=== PATIENT | male | born 2000 | race Hispanic/Latino ===

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

== ENCOUNTER 2024-07-20 14:35 | Inpatient (IN) | payer OTHER, BC ==
[~2024-07-20] VITALS: Ht 177.8 cm; Wt 95.0 kg
--- NOTE | 2024-07-20 15:13 | ERN ---
ED Note History of Present Illness Stated Complaint: SENT BY Chief Complaint: Shortness of Breath Time Seen by MD: 14:39 Dictation: 23-year-old male presents to the ED for evaluation of shortness a breath onset three days ago. Patient reports cough and nasal congestion, but denies any other associated symptoms at this time. Patient was sent by [facility] for low O2 sats and was diagnosed with pneumonia. Allergies: Coded Allergies: No Known Drug Allergies (Unverified Allergy, Unknown, 07/20/24) Past Medical History Past Medical History: No Pertinent History Surgical History: None Review of System Dictation Constitutional: Negative for fever,chills, and weight loss Eyes: Negative for injury, pain,redness, and discharge ENT: Positive for nasal congestion Negative for injury,pain or swelling Cardiovascular: Negative for chest pain, palpitations, and edema Respiratory: Positive for shortness of breath and cough Abdomen/GI: Negative for abdominal pain, nausea, vomiting, diarrhea, and constipation Back: Negative for injury and pain : Negative for injury, bleeding and discharge MS/Extremity: Negative for injury and deformity Skin: Negative for rash, and discoloration Neuro: Negative for headache, weakness, numbness, tingling, and seizure Psych: Negative for suicide ideation, homicidal ideation, and hallucinations Initial Vital Sign VS Vital Signs Date Time Temp Pulse Resp B/P (MAP) Pulse Ox O2 Delivery O2 Flow Rate FiO2 07/20/24 14:38 102.2 114 20 154/79 91 Room Air 0 07/20/24 15:05 21 Physical Exam Dictation General: awake, alert, ill-appearing, febrile Head/Face: Normocephalic, atraumatic Eyes: PERRL, EOMI, vision at baseline ENT: oral cavity clear, TMs clear, nasal congestion Neck: Trachea midline, supple, no nuchal rigidity Cardiovascular: Tachycardic, No MRGs, no JVD Respiratory: CTAB, no respiratory distress, No rales or wheezes Abdomen: Soft, non-tender, non-distended, normal bowel sounds, no guarding or rebound. Skin: Warm, dry, normal turgor, no rash MS/Extremity: Pulses equal, no cyanosis, neurovascular intact, FROM Neuro: COAx4, GCS 15, strength 5/5, CN 2-12 intact, normal cerebellar exam, normal gait, Psych: Normal behavior, mood, and affect normal Results (Laboratory/Radiology) Laboratory/Radiology Laboratory Tests Test 07/20/24 14:51 07/20/24 15:23 Influenza Type A Antigen Negative For Type A Influenza Type B Antigen Negative For Type B SARS-CoV-2 Antigen (Rapid) PRESUMPTIVE NEGATIVE Group A Streptococcus Rapid negative (NEGATIVE) White Blood Count 11.2 K/uL (4.8-10.8) H Red Blood Count 5.04 MIL/uL (4.50-6.20) Hemoglobin 14.7 g/dL (14.0-18.0) Hematocrit 44.3 % (42-54) Mean Corpuscular Volume 87.9 fL (79-99) Mean Corpuscular Hemoglobin 29.2 pg (27.0-33.0) Mean Corpuscular Hemoglobin Concent 33.2 g/dL (32.0-36.0) Red Cell Distribution Width 12.8 % (11.0-15.5) Platelet Count 374 K/uL (130-400) Mean Platelet Volume 9.8 fL (7.5-10.5) Immature Granulocyte % (Auto) 0.8 % (0-1) Neutrophils (%) (Auto) 83.5 % (40.0-77.0) H Lymphocytes (%) (Auto) 7.9 % (21.0-51.0) L Monocytes (%) (Auto) 6.9 % (3.0-13.0) Eosinophils (%) (Auto) 0.4 % (0.0-8.0) Basophils (%) (Auto) 0.5 % (0.0-5.0) Neutrophils # (Auto) 9.4 K/uL (1.8-7.7) H Lymphocytes # (Auto) 0.9 K/uL (1.0-4.8) L Monocytes # (Auto) 0.8 K/uL (0.1-1.0) Eosinophils # (Auto) 0.05 K/uL (0.00-0.70) Basophils # (Auto) 0.06 K/uL (0.00-0.20) Absolute Immature Granulocyte (auto 0.09 K/uL (0-1) Nucleated Red Blood Cells 0.0 % (0.0-0.19) White Cell Morphology Comment See comments Sodium Level 136 mmol/L (136-145) Potassium Level 3.8 mmol/L (3.5-5.1) Chloride Level 96 mmol/L (101-111) L Carbon Dioxide Level 31 mmol/L (21-32) Blood Urea Nitrogen 13 mg/dL (7-18) Creatinine 1.3 mg/dL (0.5-1.3) Glomerular Filtration Rate Calc 80 mL/min (>90) Random Glucose 147 mg/dL (70-105) H Lactic Acid Level 2.2 mmol/L (0.8-2.5) Total Calcium 9.4 mg/dL (8.5-10.1) Total Bilirubin 0.5 mg/dL (0.2-1.0) Direct Bilirubin 0.1 mg/dL (0.0-0.3) Aspartate Amino Transf (AST/SGOT) 28 U/L (10-37) Alanine Aminotransferase (ALT/SGPT) 55 U/L (12-78) Alkaline Phosphatase 65 U/L (50-136) Total Creatine Kinase 254 U/L (21-232) H Troponin I High Sensitivity 4 ng/L (4-75) B-Type Natriuretic Peptide 8 pg/mL (0-100) Total Protein 8.0 g/dL (6.0-8.3) Albumin 3.4 g/dL (3.5-5.0) L Labs Reviewed?: Yes X-RAY Comment: REASON: sob ORDERING PHYSICIAN: DEMARIO ZAMUDIO MD PROCEDURE: CXR1VW - CHEST 1VW CHEST 1VW REASON: sob COMPARISON: None. FINDINGS: There is haziness in the left lung base, probably from a left pleural effusion. The left basilar infiltrate consistent appearance. Lungs are otherwise clear. Cardiomediastinal and bony thorax appear unremarkable. IMPRESSION: 1. Infiltrate or effusion in the left lung base. DICTATED BY: JUAN CARLOS GANNON MD DATE: 07/20/24 1538 ED Course ED Course Orders Procedure Category Date Status Time Covid19 (Sars Antigen LAB 07/20/24 Complete Rapid) 14:39 Influenza Type A & B, LAB 07/20/24 Complete Rapid 14:39 Rapid (Group A Strep) LAB 07/20/24 Complete 14:39 Cbc With Differential LAB 07/20/24 Complete 15:12 Hepatic Function Panel LAB 07/20/24 Complete 15:12 Creatine Kinase, Total LAB 07/20/24 Complete 15:12 Basic Metabolic Panel LAB 07/20/24 Complete 15:12 Blood Cult VIRAL 07/20/24 Logged 15:12 B-Type Natriuretic LAB 07/20/24 Complete Peptide 15:12 Lactic Acid LAB 07/20/24 Complete 15:12 Troponin I High LAB 07/20/24 Complete Sensitivity 15:12 Chest 1vw RAD 07/20/24 Resulted 15:12 Urinalysis Profile LAB 07/20/24 Logged 15:12 Ipratropium/Albuterol PHA 07/20/24 Complete Neb (Duoneb) 15:30 Ceftriaxone 2gm Vial PHA 07/20/24 Complete (Rocephin 2gm Inj) 15:30 0.9%Nacl 1000ml (Ns PHA 07/20/24 Complete 1000ml) 15:30 Acetaminophen 500mg PHA 07/20/24 Complete Tab (Tylenol 500mg T 15:30 Current Medications Medications (Trade) Dose Ordered Sig/Carol Route PRN Reason Start Time Stop Time Status Last Admin Dose Admin Acetaminophen (TYLenol 500MG TAB) 1,000 mg ONCE ONCE PO 07/20/24 15:30 07/20/24 15:31 DC 07/20/24 15:35 Albuterol (DUOneb) 1 udvial ONCE ONCE IH 07/20/24 15:30 07/20/24 15:31 DC 07/20/24 15:34 Ceftriaxone Sodium (Rocephin 2gm Inj) 2 gm ONCE ONCE IVPB 07/20/24 15:30 07/20/24 15:31 DC 07/20/24 15:34 Sodium Chloride 1,000 ml @ 0 mls/hr ONCE ONCE IV 07/20/24 15:30 07/20/24 15:31 DC 07/20/24 15:34 Vital Signs Date Time Temp Pulse Resp B/P (MAP) Pulse Ox O2 Delivery O2 Flow Rate FiO2 07/20/24 15:34 111 24 07/20/24 15:05 102.2 110 18 131/78 90 Room Air* 0 21 07/20/24 14:38 102.2 114 20 154/79 91 Room Air 0 Medical Decision Making MDM MDM: Differential diagnosis: Pneumonia, pleural effusion, viral syndrome 1725- [facility] consult, accepts patient for admission Rationale: Tests considered and ordered secondary to shared decision making include: labs and radiology Risk of complication and/or morbidity or mortality of patient management: None Medications-Per medication reconciliation Need for hospitalization: Patient does meet criteria for hospitalization. Need for emergency major/minor surgery: No There are no social concerns with this patient. I independently interpreted the test that were performed, results were reviewed by me and considered findings on radiology if ordered. Medical management and examination interpretation discussions were had by me with other qualified healthcare professionals as indicated for the patient's care. Critical Care Note Critical Time: other (Total critical care time was 33 minutes. Excluding time for procedures. Management of critically ill patient with concern for acute decompensation. Management included interpretation of laboratory values and imaging, hemodynamics, time for consultation with consultants and admitting physician.) DX & DISP Disposition: Inpatient Decision to Admit Date: Jul 20, 2024 Decision to Admit Time: 17:25 Departure Impression: Primary Impression: Pleural effusion, left Additional Impressions: Community acquired pneumonia, Hypoxemia Condition: Stable Referrals: JAYNE FRANK MD (PCP) DEMARIO ZAMUDIO MD Jul 20, 2024 15:13
[2024-07-20 15:14] LABS: RAPID GROUP A STREP negative (NEGATIVE)
[2024-07-20 15:24] LABS: COVID19 (SARS ANTIGEN RAPID) PRESUMPTIVE NEGATIVE (NEGATIVE); INFLUENZA TYPE A Negative For Type A (NEGATIVE); INFLUENZA TYPE B Negative For Type B (NEGATIVE)
[2024-07-20 15:34] VITALS: PULSE 111; RESP 24
[2024-07-20] MEDS: 0.9%NACL 1000ML 1,000 ML IV ONE (15:34)
[2024-07-20] MEDS: IpraTROPium/alBUTERol SULFATE 3 ML SOLUTION IH ONE (15:34)
[2024-07-20] MEDS: CEFTRIAXONE 2GM VIAL IVPB ONE (15:34)
[2024-07-20] MEDS: acetaMINOPHEN 500 MG TABLET PO ONE (15:35)
--- NOTE | 2024-07-20 15:41 | HMCIMG ---
CHEST 1VW REASON: sob COMPARISON: None. FINDINGS: There is haziness in the left lung base, probably from a left pleural effusion. The left basilar infiltrate consistent appearance. Lungs are otherwise clear. Cardiomediastinal and bony thorax appear unremarkable. IMPRESSION: 1. Infiltrate or effusion in the left lung base.
[2024-07-20 15:45] LABS: BASOPHILS # (AUTO) 0.06 K/uL (0.00-0.20); BASOPHILS % (AUTO) 0.5 % (0.0-5.0); EOSINOPHILS # (AUTO) 0.05 K/uL (0.00-0.70); EOSINOPHILS % (AUTO) 0.4 % (0.0-8.0); HEMATOCRIT 44.3 % (42-54); IMMATURE GRANULOCYTE ABSOLUTE 0.09 K/uL (0-1); LYMPHOCYTES # (AUTO) 0.9 K/uL (1.0-4.8); LYMPHOCYTES % (AUTO) 7.9 % (21.0-51.0); MEAN CORPUSCULAR HEMOGLOBIN 29.2 pg (27.0-33.0); MEAN CORPUSCULAR HGB CONC 33.2 g/dL (32.0-36.0); MEAN CORPUSCULAR VOLUME 87.9 fL (79-99); MONOCYTES # (AUTO) 0.8 K/uL (0.1-1.0); MONOCYTES % (AUTO) 6.9 % (3.0-13.0); NEUTROPHILS # (AUTO) 9.4 K/uL (1.8-7.7); NEUTROPHILS % (AUTO) 83.5 % (40.0-77.0); PLATELET COUNT (AUTO) 374 K/uL (130-400); RED BLOOD CELL COUNT(AUTO) 5.04 MIL/uL (4.50-6.20); RED CELL DISTRIBUTION WIDTH 12.8 % (11.0-15.5); WHITE BLOOD COUNT (AUTO) 11.2 K/uL (4.8-10.8)
[2024-07-20 15:54] LABS: CREATININE 1.3 mg/dL (0.5-1.3); POTASSIUM 3.8 mmol/L (3.5-5.1)
[2024-07-20 15:59] LABS: ALBUMIN 3.4 g/dL (3.5-5.0); BILIRUBIN,DIRECT 0.1 mg/dL (0.0-0.3); BILIRUBIN,TOTAL 0.5 mg/dL (0.2-1.0)
[2024-07-20 16:13] LABS: B-TYPE NATRIURETIC PEPTIDE 8 pg/mL (0-100)
[2024-07-20] MEDS ORDERED: ondanSETRON 4MG INJ IVP PRN (17:30)
[2024-07-20] MEDS: cefTRIAXone 1G VIAL IVPB SCH (17:30)
[2024-07-20] MEDS ORDERED: acetaMINOPHEN 325 MG TAB PO PRN (17:30)
--- NOTE | 2024-07-20 17:38 | HP ---
[facility] HISTORY AND PHYSICAL Date of Service: Jul 20, 2024 Time of Service: 17:31 HISTORY OF PRESENT ILLNESS: [23-year-old with denies any pertinent medical history presented to the emergency department with shortness of breaths for three days now. Patient re ported cough and nasal congestion. He denies any fever chills body aches. Apparently patient was sent by [facility] for low oxygen saturation and was diagnosed with pneumonia. In the ED, his initial vital signs showed temperature of 102.2 F, pulse 114, respiratory rate 24, BP 154/79, O2 sat 90% on room air. Laboratory data reviewed, WBC 11.2, left shift noted, chloride 96, random glucose 146, total creatinine kinase 254, albumin 3.4. Chest x-ray showed infiltrate or effusion in the left lung base. He was referred to the hospitalist for further evaluation and management.] REVIEW OF SYSTEMS CONSTITUTIONAL: Denies fevers, chills, or night sweats. No unintentional weight loss reported. NEUROLOGICAL: Denies headache, amaurosis fugax, motor weakness, sensory deficit, vertigo/spinning sensation, gait abnormalities, or tremors. ENT: No hearing loss, otalgia, otorrhea, rhinitis, rhinorrhea, hoarseness, or sore throat. CARDIOVASCULAR: Denies any exertional angina, dyspnea on exertion, orthopnea, paroxysmal nocturnal dyspnea, palpitations, life-threatening arrhythmias, claudication. PULMONARY: Denies any shortness of breath, cough, phlegm/sputum, hemoptysis, pleuritic chest pain. SLEEP: Denies morning headaches, daytime somnolence or napping. Denies difficulty falling asleep, staying asleep, waking from sleep. Denies knowledge of snoring. GASTROINTESTINAL: Denies any type of dysphagia to either liquids or solids. Denies nausea, vomiting, pyrosis, early satiety, abdominal pain, diarrhea, constipation, or changes in stool consistency or caliber. Denies coffee-ground emesis, hematemesis, hematochezia, or melanotic stools. GENITOURINARY: Denies frequency, urgency, nocturia, hematuria or incontinence (Storage/Irritative symptoms.) Low urinary stream, straining to void, urinary intermittency or hesitancy, splitting of the voiding stream, terminal dribbling. ENDOCRINOLOGIC: Denies polyuria, polydipsia, polyphagia or heat/cold intolerances. HEMATOLOGIC: Denies thrombophilia/previous clots, or coagulopathy/bleeding disorders. ONCOLOGIC: Denies personal history of malignancy. DERMATOLOGIC: Denies rashes or pruritus. PSYCHIATRIC: Denies any suicidal or homicidal ideation. Denies hallucinations. PAST MEDICAL HISTORY: [ ] PAST SURGICAL HISTORY: [ ] PAST SOCIAL HISTORY: [ ] FAMILY HISTORY: [ ] Coded Allergies: No Known Drug Allergies (Unverified Allergy, Unknown, 07/20/24) PHYSICAL EXAM GENERAL APPEARANCE: The patient is awake, alert, and oriented, in no acute cardiopulmonary distress. NEUROLOGICAL: Cranial nerves II-XII grossly intact. Motor is 5/5 in bilateral upper and lower extremities proximal to distal. No sensory deficits. HEENT: Face is symmetric. Pupils are equal and reactive. Extraocular movements are intact. NECK: Supple. No JVD. No thyromegaly. No submental, submandibular, pre- /postauricular, occipital or supraclavicular lymphadenopathy. CHEST: Normal chest expansion. No Telemetry. LUNGS: Absence of any rales, rhonchi or any wheezing. CARDIOVASCULAR: Regular. S1 and S2 normal. No appreciable rubs, murmurs or gallops. ABDOMEN: Soft, nontender, and nondistended. There is no rebound, voluntary guarding, or rigidity. : Deferred. No Thomas. EXTREMITIES: Non-edematous and not cyanotic. No clubbing. Good capillary refill. SKIN: No skin breakdown. Vital Sign (Last 24 Hours) 07/20/24 07/20/24 15:05 15:34 Temp 102.2 Pulse 111 Resp 24 B/P (MAP) 131/78 Pulse Ox 90 O2 Delivery Room Air* O2 Flow Rate 0 FiO2 21 LABS: Laboratory: Test 07/20/24 15:23 07/20/24 14:51 Range/Units White Blood Count 11.2 H 4.8-10.8 K/uL Red Blood Count 5.04 4.50-6.20 MIL/uL Hemoglobin 14.7 14.0-18.0 g/dL Hematocrit 44.3 42-54 % Mean Corpuscular Volume 87.9 79-99 fL Mean Corpuscular Hemoglobin 29.2 27.0-33.0 pg Mean Corpuscular Hemoglobin Concent 33.2 32.0-36.0 g/dL Red Cell Distribution Width 12.8 11.0-15.5 % Platelet Count 374 130-400 K/uL Mean Platelet Volume 9.8 7.5-10.5 fL Immature Granulocyte % (Auto) 0.8 0-1 % Neutrophils (%) (Auto) 83.5 H 40.0-77.0 % Lymphocytes (%) (Auto) 7.9 L 21.0-51.0 % Monocytes (%) (Auto) 6.9 3.0-13.0 % Eosinophils (%) (Auto) 0.4 0.0-8.0 % Basophils (%) (Auto) 0.5 0.0-5.0 % Neutrophils # (Auto) 9.4 H 1.8-7.7 K/uL Lymphocytes # (Auto) 0.9 L 1.0-4.8 K/uL Monocytes # (Auto) 0.8 0.1-1.0 K/uL Eosinophils # (Auto) 0.05 0.00-0.70 K/uL Basophils # (Auto) 0.06 0.00-0.20 K/uL Absolute Immature Granulocyte (auto 0.09 0-1 K/uL Nucleated Red Blood Cells 0.0 0.0-0.19 % White Cell Morphology Comment See comments Sodium Level 136 136-145 mmol/L Potassium Level 3.8 3.5-5.1 mmol/L Chloride Level 96 L 101-111 mmol/L Carbon Dioxide Level 31 21-32 mmol/L Blood Urea Nitrogen 13 7-18 mg/dL Creatinine 1.3 0.5-1.3 mg/dL Glomerular Filtration Rate Calc 80 >90 mL/min Random Glucose 147 H 70-105 mg/dL Lactic Acid Level 2.2 0.8-2.5 mmol/L Total Calcium 9.4 8.5-10.1 mg/dL Total Bilirubin 0.5 0.2-1.0 mg/dL Direct Bilirubin 0.1 0.0-0.3 mg/dL Aspartate Amino Transf (AST/SGOT) 28 10-37 U/L Alanine Aminotransferase (ALT/SGPT) 55 12-78 U/L Alkaline Phosphatase 65 50-136 U/L Total Creatine Kinase 254 H 21-232 U/L Troponin I High Sensitivity 4 4-75 ng/L B-Type Natriuretic Peptide 8 0-100 pg/mL Total Protein 8.0 6.0-8.3 g/dL Albumin 3.4 L 3.5-5.0 g/dL Influenza Type A Antigen Negative For Type A NEGATIVE Influenza Type B Antigen Negative For Type B NEGATIVE SARS-CoV-2 Antigen (Rapid) PRESUMPTIVE NEGATIVE NEGATIVE Group A Streptococcus Rapid negative NEGATIVE DIAGNOSTICS / RADIOLOGY: [[facility] [address] [place] [address] IMAGING REPORT Signed PATIENT: YESSI MADDEN MR#: [id number] : 2000 SEX: M AGE: 23 LOCATION: [facility] ORDER 13 STATUS: [facility] REPORT#: [id number] SERVICE 151 REASON: sob ORDERING PHYSICIAN: DEMARIO ZAMUDIO MD PROCEDURE: CXR1VW - CHEST 1VW CHEST 1VW REASON: sob COMPARISON: None. FINDINGS: There is haziness in the left lung base, probably from a left pleural effusion. The left basilar infiltrate consistent appearance. Lungs are otherwise clear. Cardiomediastinal and bony thorax appear unremarkable. IMPRESSION: 1. Infiltrate or effusion in the left lung base. DICTATED BY: JUAN CARLOS GANNON MD DATE: 07/20/24 153 ELECTRONICALLY SIGNED BY: JUAN CARLOS GANNON MD DATE: 07/20/24 1541 ] ASSESSMENT: [Sepsis, POA Left lung pneumonia, POA Left lung infiltrate, POA Acute hypoxic respiratory failure, POA] Acute mild rhabdomyolysis, POA PLAN: [Patient to be admitted to ICU We will consult critical Care team Patient will continue with oxygen supplementation to keep O2 sat greater than 92% Continue with nebulizer treatment with ipratropium/albuterol every 6 hours scheduled Patient will receive furosemide 20 mg IV q.12 hours Continue with normal saline at 75 mL/hour for rhabdomyolysis Patient will continue with broad-spectrum IV antibiotics with Rocephin1 g Q 24 hours Continue with GI and DVT prophylaxis We will repeat labs tomorrow We will order ABG stat We will order D-dimer We will order CT chest with contrast Patient is a full code Case discussed with Dr. Morillo, above plan was formulated [facility] PLANNING 1. Which of the following were discussed? Hospice Care - Yes / No Therapeutic options - Yes / No Advance Directives - Yes / No Other discussions - 2. Discussed with who? Patient 3. Voluntary nature of this service was explained to the patient? Yes / No 4. Amount of time spent - ___20 mins____ 5. Reviewed by Physician? (if this service was performed by NPP) Yes / No ] ATTESTATION BY PHYSICIAN I have seen and examined the patient. I reviewed the documentation, medical decision making, and treatment plan as noted by the mid-level provider above. I agree with the findings and plan of care. ROSE MORILLO MD, [facility] Jul 20, 2024 17:38
[2024-07-20] MEDS ORDERED: IOHEXOL 350 MG/ML 100ML INFUS..BTL IV ONE (17:42)
[2024-07-20] MEDS: furoSEMIDE 20MG VIAL IV SCH (18:10)
[2024-07-20 18:12] LABS: HEMATOCRIT 39.5 % (42-54); MEAN CORPUSCULAR HGB CONC 33.2 g/dL (32.0-36.0); MEAN CORPUSCULAR VOLUME 87.6 fL (79-99); RED BLOOD CELL COUNT(AUTO) 4.51 MIL/uL (4.50-6.20); RED CELL DISTRIBUTION WIDTH 12.7 % (11.0-15.5); WHITE BLOOD COUNT (AUTO) 11.1 K/uL (4.8-10.8)
[2024-07-20 18:21] LABS: CREATININE 1.2 mg/dL (0.5-1.3); MAGNESIUM 1.9 mg/dL (1.80-2.40); POTASSIUM 3.7 mmol/L (3.5-5.1)
[2024-07-20] MEDS: 0.9%NACL 1000ML 1,000 ML IV SCH (18:25)
--- NOTE | 2024-07-20 18:32 | HMCIMG ---
CT CHEST WITH CONTRAST INDICATION: Pleural effusion evaluation TECHNIQUE: Routine axial images using 5 mm slice thickness were acquired from the lung apices to the bases after the administration of 100 mL of Isovue 370 IV contrast.Coronal and sagittal reformatted images acquired for interpretation. CT was performed with one or more of the following dose reduction techniques: Automated exposure control, adjustment of the mA and/or kV according to patient size, or use of iterative reconstruction technique. COMPARISON: None FINDINGS: The heart size is normal. No pericardial effusion noted. The visualized great vessels and thoracic aorta are within normal limits. The trachea and airways are patent. Large left lower lobe consolidation. Scattered inferior right upper lobe opacities and scattered right lower lobe opacities. Minimal posterior left upper lobe opacities. Small lingular consolidation. No axillary, hilar, or mediastinal lymphadenopathy. No pleural effusion or pneumothorax identified. Limited views of the upper abdomen appear normal. Visible osseous structures are intact. IMPRESSION: Extensive left greater than right lung pneumonia, without pleural effusion.
[2024-07-20 19:03] LABS: APPEARANCE,URINE CLEAR (CLEAR); BILIRUBIN,URINE NEGATIVE (NEGATIVE); COLOR,URINE COLORLESS (YELLOW); GLUCOSE, URINE (UA) NEGATIVE (NEGATIVE); KETONES,URINE NEGATIVE (NEGATIVE); LEUKOCYTE ESTERASE ,URINE NEGATIVE Leu/uL (NEGATIVE); NITRATE,URINE NEGATIVE (NEGATIVE); OCCULT BLOOD,URINE NEGATIVE (NEGATIVE); PROTEIN,URINE NEGATIVE (NEGATIVE); UROBILINOGEN,URINE 0.2 mg/dL (0.2-1.0)
[2024-07-20 19:04] LABS: ADD UA MICROSCOPIC NO
--- NOTE | 2024-07-20 19:21 | NUR ---
TOOK OVER PATIENT AT THIS TIME
[2024-07-20 20:08] VITALS: PULSE 89; RESP 18; O2SAT 93
[2024-07-20 20:08] LABS: ABG BASE EXCESS 0.8 mmol/L (-2.0-3.0); ABG HCO3 23.9 mmol/L (21.0-28.0); ABG PCO2 34 mmHg (35-48); ABG PH 7.463 (7.350-7.450); DEVICE COMMENT RB RN MARAYA; PO2, ARTERIAL BG 61.3 mmHg (83.0-108.0); VENT MODE, BG NC (ROOM AIR)
[2024-07-20] MEDS: IpraTROPium/alBUTERol SULFATE 3 ML SOLUTION IH SCH (20:14)
[2024-07-20] MEDS: acetaMINOPHEN 325 MG TAB PO PRN (21:50)
--- NOTE | 2024-07-20 22:16 | NUR ---
OSEI BELLOP WITH CRITICAL CARE CONSULTED AT THIS TIME
[2024-07-20] MEDS: DOXYCYCLINE 100MG+NS 250ML 250 ML IV SCH (22:46)
[2024-07-20] MEDS: Solu-medROL 125MG VIAL IVP ONE (22:46)
[2024-07-20 23:46] VITALS: TEMP 99.1
[2024-07-21] VITALS (8 sets, daily range): BP systolic 122; BP diastolic 57; PULSE 72–83; RESP 18–20; TEMP 98.3; O2SAT 93–98
[2024-07-21] MEDS ORDERED: IpraTROPium/alBUTERol SULFATE 3 ML SOLUTION IH SCH
[2024-07-21] MEDS: IpraTROPium/alBUTERol SULFATE 3 ML SOLUTION IH SCH (01:51)
[2024-07-21] MEDS: Solu-medROL 125MG VIAL IVP SCH ×2 (04:24→22:17)
--- NOTE | 2024-07-21 08:12 | CONS ---
[facility] CONSULTATION NOTE Date Patient Seen: Jul 21, 2024 Time of Visit: 08:11 Supervising Physician: Neno Esquivel MD Reason for Consultation: Large left pleural effusion Primary Care Physician: Lisbet Matthews MD Outpatient Specialists: Attending Physician: Ilia Rosado MD Inpatient Consults: BIS PROBLEM LIST: Acute hypoxemic respiratory failure, POA on 4 L via NC Sepsis, POA w/ Organ dysfunction (respiratory) Gram Negative Bilateral lung pneumonia with L> R left side pleural effusion ruled out per CT chest Dehydration POA mild rhabdomyolysis Mild hypoalbuminemia Elevated D-Dimer POA Obesity BMI 30.6 HPI: This is a pleasant 23 yrs old male with no pertinent past medical HX. As per pt and mother who is at the bedside pt is overall pretty healthy who came in to the ED on 07/20/24 for evaluation cough , nasal congestion and sob x 3 days. The pt was admitted for sepsis per [facility] team and we were consulted for concerns of left side pleural effusion. On behalf of [facility] thank you for given us the opportunity to participate in the care of this patient. On assessment of patient is awake alert and oriented x3 sitting up in the edge of the bed without his oxygen saturating 88%. Encouraged patient to use the oxygen due to acute illness in in order to increased oxygenation of body organs. On laboratory D-dimer was [address] of the chest with contrast no mention of pulmonary embolism and bilateral lobe pneumonia with left greater than the right. WBCs today 11.1 similar to yesterday H&H 13.1/39.5 slightly decreased likely from hydration. Chemistries sodium 134 chloride 97 creatinine is 1.2 and GFR of 88. Glucose 116 mg/dL lactic acid is down at 1.6 magnesium is 1.9 procalcitonin 0.09. ABG yesterday showed a pH of 7.46 pCO2 of 34 PO2 of 61.3 and bicarb 23.9. On serology with the consent of patient we checked for HIV 1&2 antibody nonreactive x2. Patient is negative for strep throat COVID-19 or influenza. Respiratory culture came back with Gram-negative rods. Change antibiotics from Rocephin to Zosyn. On CT of the chest extensive left greater than right lung pneumonia without pleural effusion. PAST MEDICAL HX: see above PAST SURGICAL HX: noncontributory SOCIAL HISTORY: No tobacco, ETOH, or illicit drug use Coded Allergies: No Known Drug Allergies (Unverified Allergy, Unknown, 07/20/24) REVIEW OF SYSTEMS: Const: [no fever, fatigue, or weight changes] yes for chills Eyes:[ no recent vision problems] ENT: [No congestion, ear pain, or sore throat] C/V: [no chest pain, palpitations or edema] Resp:yes to cough, sob and nasal congestion GI: [No abdominal pain, nausea, vomiting, constipation, Yes to diarrhea : [No incontinence of or dyuria] M/S: [No joint or pain swelling] Skin: [No rash] Neuro: [no headache, focal numbness, or weakness, dizziness or seizures] Psych: [no depression or anxiety] Heme: [no abnormal bruising or bleeding] Lymph: [no swollen glands] PHYSICAL EXAM: GENERAL: alert, weak, awake oriented x 3 HEENT: EOMI, Sclera non icteric, moist mucosa NECK: Supple, no JVD, trachea midline LUNGS: Rhonchi breath sounds bilaterally. No wheezes HEART: Regular rate and rhythm. Normal S1 and S2, without murmurs ABD: Abdomen soft, nontender. Bowel sounds present EXT: No clubbing cyanosis or edema NEURO: Alert and oriented to person, follows commands Vital Signs (last 8hr) Date Time Temp Pulse Resp B/P (MAP) Pulse Ox O2 Delivery O2 Flow Rate FiO2 07/21/24 06:46 73 18 N/Cannula Low lpm 4.0 07/21/24 06:46 73 18 07/21/24 05:32 98.4 70 20 115/74 96 Nasal Cannula* 3 32 07/21/24 04:29 98.2 68 20 112/66 96 Nasal Cannula* 3 32 07/21/24 02:37 98.4 88 20 106/60 94 Nasal Cannula* 3 32 07/21/24 01:51 76 18 N/Cannula Low lpm 4.0 36 07/21/24 01:51 76 18 07/21/24 01:11 98.1 100 20 116/60 94 Nasal Cannula* 3 32 LABS: Hematology Labs: Test 07/20/24 18:05 07/20/24 15:23 Range/Units White Blood Count 11.1 H 4.8-10.8 K/uL Red Blood Count 4.51 4.50-6.20 MIL/uL Hemoglobin 13.1 L 14.0-18.0 g/dL Hematocrit 39.5 L 42-54 % Mean Corpuscular Volume 87.6 79-99 fL Mean Corpuscular Hemoglobin 29.0 27.0-33.0 pg Mean Corpuscular Hemoglobin Concent 33.2 32.0-36.0 g/dL Red Cell Distribution Width 12.7 11.0-15.5 % Platelet Count 330 130-400 K/uL Mean Platelet Volume 9.8 7.5-10.5 fL Nucleated Red Blood Cells 0.0 0.0-0.19 % Immature Granulocyte % (Auto) 0.8 0-1 % Neutrophils (%) (Auto) 83.5 H 40.0-77.0 % Lymphocytes (%) (Auto) 7.9 L 21.0-51.0 % Monocytes (%) (Auto) 6.9 3.0-13.0 % Eosinophils (%) (Auto) 0.4 0.0-8.0 % Basophils (%) (Auto) 0.5 0.0-5.0 % Neutrophils # (Auto) 9.4 H 1.8-7.7 K/uL Lymphocytes # (Auto) 0.9 L 1.0-4.8 K/uL Monocytes # (Auto) 0.8 0.1-1.0 K/uL Eosinophils # (Auto) 0.05 0.00-0.70 K/uL Basophils # (Auto) 0.06 0.00-0.20 K/uL Absolute Immature Granulocyte (auto 0.09 0-1 K/uL White Cell Morphology Comment See comments Chemistry Labs: Test 07/20/24 20:34 07/20/24 18:05 07/20/24 15:23 Range/Units Lactic Acid Level 1.6 0.8-2.5 mmol/L Sodium Level 134 L 136-145 mmol/L Potassium Level 3.7 3.5-5.1 mmol/L Chloride Level 97 L 101-111 mmol/L Carbon Dioxide Level 29 21-32 mmol/L Blood Urea Nitrogen 12 7-18 mg/dL Creatinine 1.2 0.5-1.3 mg/dL Glomerular Filtration Rate Calc 88 >90 mL/min Random Glucose 116 H 70-105 mg/dL Total Calcium 8.6 8.5-10.1 mg/dL Magnesium Level 1.90 1.80-2.40 mg/dL Procalcitonin 0.09 0.05-0.5 ng/mL Total Bilirubin 0.5 0.2-1.0 mg/dL Direct Bilirubin 0.1 0.0-0.3 mg/dL Aspartate Amino Transf (AST/SGOT) 28 10-37 U/L Alanine Aminotransferase (ALT/SGPT) 55 12-78 U/L Alkaline Phosphatase 65 50-136 U/L Total Creatine Kinase 254 H 21-232 U/L Troponin I High Sensitivity 4 4-75 ng/L B-Type Natriuretic Peptide 8 0-100 pg/mL Total Protein 8.0 6.0-8.3 g/dL Albumin 3.4 L 3.5-5.0 g/dL Coagulation Labs: Test 07/20/24 18:05 Range/Units D-Dimer Quantitative (PE/DVT) 1846 *H 0-500 ng/mL DIAGNOSTICS / RADIOLOGY RESULTS: IMAGING REPORT Signed PATIENT: YESSI MADDEN MR#: [id number] : 2000 SEX: M AGE: 23 LOCATION: [facility] ORDER 1731 STATUS: ADM IN REPORT#: [id number] SERVICE 1725 REASON: pleural effusion ORDERING PHYSICIAN: TANIA DEAN PROCEDURE: CHEST W - CT CHEST W/CONTRAST CT CHEST WITH CONTRAST INDICATION: Pleural effusion evaluation TECHNIQUE: Routine axial images using 5 mm slice thickness were acquired from the lung apices to the bases after the administration of 100 mL of Isovue 370 IV contrast.Coronal and sagittal reformatted images acquired for interpretation. CT was performed with one or more of the following dose reduction techniques: Automated exposure control, adjustment of the mA and/or kV according to patient size, or use of iterative reconstruction technique. COMPARISON: None FINDINGS: The heart size is normal. No pericardial effusion noted. The visualized great vessels and thoracic aorta are within normal limits. The trachea and airways are patent. Large left lower lobe consolidation. Scattered inferior right upper lobe opacities and scattered right lower lobe opacities. Minimal posterior left upper lobe opacities. Small lingular consolidation. No axillary, hilar, or mediastinal lymphadenopathy. No pleural effusion or pneumothorax identified. Limited views of the upper abdomen appear normal. Visible osseous structures are intact. IMPRESSION: Extensive left greater than right lung pneumonia, without pleural effusion. DICTATED BY: PEÑA CHRISTIAN MD DATE: 07/20/241828 ELECTRONICALLY SIGNED BY: PEÑA CHRISTIAN MD DATE: 07/20/241831 Cialis Signed PATIENT: YESSI MADDEN MR#: [id number] : 2000 SEX: M AGE: 23 LOCATION: [facility] ORDER 13 STATUS: REG ER REPORT#: [id number] SERVICE 11 REASON: sob ORDERING PHYSICIAN: DEMARIO ZAMUDIO MD PROCEDURE: CXR1VW - CHEST 1VW CHEST 1VW REASON: sob COMPARISON: None. FINDINGS: There is haziness in the left lung base, probably from a left pleural effusion. The left basilar infiltrate consistent appearance. Lungs are otherwise clear. Cardiomediastinal and bony thorax appear unremarkable. IMPRESSION: 1. Infiltrate or effusion in the left lung base. DICTATED BY: JUAN CARLOS GANNON MD DATE: 07/20/24 1538 ELECTRONICALLY SIGNED BY: JUAN CARLOS GANNON MD DATE: 07/20/24 1541 PLAN Continue duo nebs q.4 hours Mucomyst q.6 hours IS q.2 hours CPT with Acapella Change antibiotic to Zosyn and doxycycline Follow respiratory cultures Influenza a and B negative COVID-19 negative Strep throat negative Continue Solu-Medrol 40 mg q.6 hours DVT and GI prophylaxis Per patient consent okay to check for HIV (Negative result) NEURO: Minimize central acting medications as possible. Fall Precautions. Well lighted room through the day and minimize interruptions through the night to prevent acute delirium. PULMONARY: Supplemental 02 as needed Titrate Fio2 to keep Spo2 > or = 92% DuoNebs and CPT as needed IS hourly while awake for pulmonary hygiene Out of bed to chair as tolerated CARDIOVASCULAR: Follow hemodynamics. Titrate vasopressor to keep MAP >65 or systolic blood pressure >95mmHg LINES: PIV GI & NUTRITION: Continue nutritional support Aspirations precautions Prokinetic agents and laxatives as needed KIDNEYS & ELECTROLYTES: Strict monitoring of intake and output Daily weights Avoid nephrotoxic agents Monitor electrolytes and replace as needed Goal urine output of 30mL/hr or 0.5mL/kg/hr ENDOCRINE: Maintain blood glucose between 100-180 at all times. Insulin sliding scale for blood glucose management INFECTIOUS DISEASE: Trend temperature. Brothers-culture if febrile. Micro: [ ] Blood cultures Respiratory culture -Gram-negative rods Antibiotics: Zosyn Doxycycline HEMATOLOGY & COAGULATION: Monitor H&H. Keep Hgb > 7 Transfuse 1 unit of PRBC for Hgb < 7 Transfuse 1 pack of platelets of platelets < 20, 000 Watch for any signs and symptoms of bleeding SKIN: Pressure ulcer prevention per facility protocol Rehab: PT/OT Prophylaxis: GI: Pepcid DVT: Lovenox Code Status: Full Resuscitation Disposition:Lovenox Other: Total patient care time exceeds 35 minutes excluding all procedures. Case was discussed and seen with my supervising physician. The above plan was formulated and agreed upon. JAIRO PUENTE Jul 21, 2024 08:12
[2024-07-21] MEDS: acetylCYSTeine 20% 200MG/ML 4ML VIAL IH SCH (14:23)
[2024-07-21 14:52] LABS: HIV 1&2 ANTIBODY Non-Reactive (Negative)
[2024-07-21 14:53] LABS: HIV-1 p24 Antigen Non-Reactive (Negative)
--- NOTE | 2024-07-21 15:20 | PN ---
[facility] PROGRESS NOTE Date of Service: Jul 21, 2024 Time of Service: 15:09 SUBJECTIVE: 23-year-old with denies any pertinent medical history presented to the emergency department with shortness of breaths for three days now. Patient reported cough and nasal congestion. He denies any fever chills body aches. Apparently patient was sent by [facility] for low oxygen saturation and was diagnosed with pneumonia. In the ED, his initial vital signs showed temperature of 102.2 F, pulse 114, respiratory rate 24, BP 154/79, O2 sat 90% on room air. Laboratory data reviewed, WBC 11.2, left shift noted, chloride 96, random glucose 146, total creatinine kinase 254, albumin 3.4. Chest x-ray showed infiltrate or effusion in the left lung base. He was referred to the hospitalist for further evaluation and management. 07/21/2024 - patient is seen at bedside. Patient mentioned about having 1 epis ode of vomiting 4 days ago when all the symptoms started and also started having diarrhea since that day. He denies any fevers chills or body aches. Patient is hemodynamically stable with temperature 98.1, pulse 90, respiratory rate 16, blood pressure 112/55, saturating at 93% on 4 L O2 nasal cannula. Labs show WBC 11.1, hemoglobin 13.1 And chemistries show sodium 134, potassium 3.7, creatinine 1.2, BUN 12. Patient is nonreactive for HIV1 and 2 antibody, Influenza type A, Influenza type B, COVID. Respiratory cultures are still pending. Plan to order stool culture, Legionella urine antigen. Critical Care has been consulted and we will follow their recommendations. Patient will be continued with doxycycline, ceftriaxone, methylprednisolone. Patient will be followed closely. REVIEW OF SYSTEMS CONSTITUTIONAL: Denies fevers, chills, or night sweats. No unintentional weight loss reported. NEUROLOGICAL: Denies headache, amaurosis fugax, motor weakness, sensory deficit, vertigo/spinning sensation, gait abnormalities, or tremors. ENT: No hearing loss, otalgia, otorrhea, rhinitis, rhinorrhea, hoarseness, or sore throat. CARDIOVASCULAR: Denies any exertional angina, dyspnea on exertion, orthopnea, paroxysmal nocturnal dyspnea, palpitations, life-threatening arrhythmias, claudication. PULMONARY: Denies any shortness of breath, cough, phlegm/sputum, hemoptysis, pleuritic chest pain. SLEEP: Denies morning headaches, daytime somnolence or napping. Denies difficulty falling asleep, staying asleep, waking from sleep. Denies knowledge of snoring. GASTROINTESTINAL: Denies any type of dysphagia to either liquids or solids. Denies nausea, vomiting, pyrosis, early satiety, abdominal pain, diarrhea, constipation, or changes in stool consistency or caliber. Denies coffee-ground emesis, hematemesis, hematochezia, or melanotic stools. GENITOURINARY: Denies frequency, urgency, nocturia, hematuria or incontinence (Storage/Irritative symptoms.) Low urinary stream, straining to void, urinary intermittency or hesitancy, splitting of the voiding stream, terminal dribbling. ENDOCRINOLOGIC: Denies polyuria, polydipsia, polyphagia or heat/cold intolerances. HEMATOLOGIC: Denies thrombophilia/previous clots, or coagulopathy/bleeding disorders. ONCOLOGIC: Denies personal history of malignancy. DERMATOLOGIC: Denies rashes or pruritus. PSYCHIATRIC: Denies any suicidal or homicidal ideation. Denies hallucinations. PHYSICAL EXAM GENERAL APPEARANCE: The patient is awake, alert, and oriented, in no acute cardiopulmonary distress. NEUROLOGICAL: Cranial nerves II-XII grossly intact. Motor is 5/5 in bilateral upper and lower extremities proximal to distal. No sensory deficits. HEENT: Face is symmetric. Pupils are equal and reactive. Extraocular movements are intact. NECK: Supple. No JVD. No thyromegaly. No submental, submandibular, pre- /postauricular, occipital or supraclavicular lymphadenopathy. CHEST: Normal chest expansion. No Telemetry. LUNGS: Absence of any rales, rhonchi or any wheezing. CARDIOVASCULAR: Regular. S1 and S2 normal. No appreciable rubs, murmurs or gallops. ABDOMEN: Soft, nontender, and nondistended. There is no rebound, voluntary guarding, or rigidity. : Deferred. No Thomas. EXTREMITIES: Non-edematous and not cyanotic. No clubbing. Good capillary refill. SKIN: No skin breakdown. Vital Signs (last 8hr) Date Time Temp Pulse Resp B/P (MAP) Pulse Ox O2 Delivery O2 Flow Rate FiO2 07/21/24 14:39 98.1 90 16 112/55 93 Nasal Cannula* 4.0 N/A 07/21/24 14:27 83 20 N/Cannula Low lpm 4.0 07/21/24 14:26 83 20 07/21/24 12:20 98.1 80 18 113/59 91 Nasal Cannula* 4.0 N/A 07/21/24 10:32 82 18 126/72 91 Nasal Cannula* 4.0 N/A 07/21/24 10:16 82 18 07/21/24 09:15 98.2 80 23 117/60 96 Nasal Cannula* 3 32 07/21/24 07:15 98.2 80 23 117/60 96 Nasal Cannula* 3 32 LABS: Laboratory: Test 07/21/24 13:38 07/20/24 20:34 07/20/24 20:06 07/20/24 18:46 Range/Units HIV (1&2) Antibody Non-Reactive Negative HIV P24 Antigen, Qualitative Non-Reactive Negative Lactic Acid Level 1.6 0.8-2.5 mmol/L Blood Gas Specimen Type Arterial Arterial Blood pH 7.463 H 7.350-7.450 Arterial Blood Partial Pressure CO2 34 L 35-48 mmHg Arterial Blood Partial Pressure O2 61.3 L 83.0-108.0 mmHg Arterial Blood HCO3 23.9 21.0-28.0 mmol/L Arterial Blood Oxygen Saturation 93.0 L 94.0-98.0 % Arterial Blood Base Excess 0.8 -2.0-3.0 mmol/L Blood Gas Temperature 37.0 35.5-37.0 CELSIUS Blood Gas Flow-by 2.00 0.00-15.00 L/min Blood Gas Vent Mode NC ROOM AIR FiO2 28.0 % Blood Gas Specimen Comment RB RN MARAYA Urine Color COLORLESS YELLOW Urine Appearance CLEAR CLEAR Urine pH 6.0 5.0-8.0 Urine Specific [place] 1.014 1.001-1.031 Urine Protein NEGATIVE NEGATIVE mg/dL Urine Glucose (UA) NEGATIVE NEGATIVE mg/dL Urine Ketones NEGATIVE NEGATIVE mg/dL Urine Occult Blood NEGATIVE NEGATIVE Urine Nitrate NEGATIVE NEGATIVE Urine Bilirubin NEGATIVE NEGATIVE mg/dL Urine Urobilinogen 0.2 0.2-1.0 mg/dL Urine Leukocyte Esterase NEGATIVE NEGATIVE Sukhi/uL Test 07/20/24 18:05 07/20/24 15:23 07/20/24 14:51 Range/Units White Blood Count 11.1 H 4.8-10.8 K/uL Red Blood Count 4.51 4.50-6.20 MIL/uL Hemoglobin 13.1 L 14.0-18.0 g/dL Hematocrit 39.5 L 42-54 % Mean Corpuscular Volume 87.6 79-99 fL Mean Corpuscular Hemoglobin 29.0 27.0-33.0 pg Mean Corpuscular Hemoglobin Concent 33.2 32.0-36.0 g/dL Red Cell Distribution Width 12.7 11.0-15.5 % Platelet Count 330 130-400 K/uL Mean Platelet Volume 9.8 7.5-10.5 fL Nucleated Red Blood Cells 0.0 0.0-0.19 % D-Dimer Quantitative (PE/DVT) 1846 *H 0-500 ng/mL Sodium Level 134 L 136-145 mmol/L Potassium Level 3.7 3.5-5.1 mmol/L Chloride Level 97 L 101-111 mmol/L Carbon Dioxide Level 29 21-32 mmol/L Blood Urea Nitrogen 12 7-18 mg/dL Creatinine 1.2 0.5-1.3 mg/dL Glomerular Filtration Rate Calc 88 >90 mL/min Random Glucose 116 H 70-105 mg/dL Total Calcium 8.6 8.5-10.1 mg/dL Magnesium Level 1.90 1.80-2.40 mg/dL Procalcitonin 0.09 0.05-0.5 ng/mL Immature Granulocyte % (Auto) 0.8 0-1 % Neutrophils (%) (Auto) 83.5 H 40.0-77.0 % Lymphocytes (%) (Auto) 7.9 L 21.0-51.0 % Monocytes (%) (Auto) 6.9 3.0-13.0 % Eosinophils (%) (Auto) 0.4 0.0-8.0 % Basophils (%) (Auto) 0.5 0.0-5.0 % Neutrophils # (Auto) 9.4 H 1.8-7.7 K/uL Lymphocytes # (Auto) 0.9 L 1.0-4.8 K/uL Monocytes # (Auto) 0.8 0.1-1.0 K/uL Eosinophils # (Auto) 0.05 0.00-0.70 K/uL Basophils # (Auto) 0.06 0.00-0.20 K/uL Absolute Immature Granulocyte (auto 0.09 0-1 K/uL White Cell Morphology Comment See comments Total Bilirubin 0.5 0.2-1.0 mg/dL Direct Bilirubin 0.1 0.0-0.3 mg/dL Aspartate Amino Transf (AST/SGOT) 28 10-37 U/L Alanine Aminotransferase (ALT/SGPT) 55 12-78 U/L Alkaline Phosphatase 65 50-136 U/L Total Creatine Kinase 254 H 21-232 U/L Troponin I High Sensitivity 4 4-75 ng/L B-Type Natriuretic Peptide 8 0-100 pg/mL Total Protein 8.0 6.0-8.3 g/dL Albumin 3.4 L 3.5-5.0 g/dL Influenza Type A Antigen Negative For Type A NEGATIVE Influenza Type B Antigen Negative For Type B NEGATIVE SARS-CoV-2 Antigen (Rapid) PRESUMPTIVE NEGATIVE NEGATIVE Group A Streptococcus Rapid negative NEGATIVE Current Medications Medications (Trade) Dose Ordered Sig/Carol Route PRN Reason Start Time Stop Time Status Last Admin Dose Admin Acetaminophen (TYLenol 325MG TAB) 650 mg Q4H PRN PO TEMPERATURE GREATER THAN 101.5 07/20/24 17:30 08/19/24 17:29 07/20/24 21:50 650 MG Acetaminophen (TYLenol 325MG TAB) 650 mg Q6H PRN PO MILD PAIN (1-3) 07/20/24 17:30 08/19/24 17:29 Acetylcysteine (MUComyst 20% 4ML) 400mg = 2ml [id number] IH 07/21/24 12:00 08/20/24 11:59 07/21/24 14:23 400 MG Albuterol (DUOneb) 1 UDVIAL [id number] IH 07/21/24 00:00 07/20/24 23:48 DC Albuterol (DUOneb) 1 UDVIAL [id number] IH 07/21/24 02:00 08/20/24 01:59 07/21/24 14:23 1 UDVIAL Albuterol (DUOneb) 1 UDVIAL [id number] IH 07/20/24 18:00 07/20/24 22:23 DC 07/20/24 20:14 1 UDVIAL Ceftriaxone Sodium (ROCEphine 1G INJ) 1 gm Q24H IVPB 07/20/24 17:30 07/21/24 08:10 DC Ceftriaxone Sodium (Rocephin 2gm Inj) 2 gm Q24H IVPB 07/21/24 17:30 07/31/24 17:29 Doxycycline Hyclate 250 ml @ 125 mls/hr Q12H IV 07/20/24 22:30 07/30/24 22:29 07/21/24 11:41 125 MLS/HR Furosemide (LASix 20MG VIAL) 20 mg Q12H IV 07/20/24 17:30 07/20/24 22:18 DC 07/20/24 18:10 20 MG Methylprednisolone Sodium Succinate (Solu-medROL 125MG) 60 mg Q6H IVP 07/21/24 04:00 08/20/24 03:59 07/21/24 11:41 60 MG Ondansetron HCl (zoFRAN 4MG INJ) 4 mg Q6H PRN IVP NAUSEA/VOMITING 07/20/24 17:30 08/19/24 17:29 Sodium Chloride 1,000 ml @ 75 mls/hr [id number] IV 07/20/24 17:30 08/19/24 17:29 07/21/24 08:53 75 MLS/HR DIAGNOSTICS / RADIOLOGY: PATIENT: YESSI MADDEN MR#: [id number] : 2000 SEX: M AGE: 23 LOCATION: [facility] ORDER 1731 STATUS: ADM IN REPORT#: [id number] SERVICE 1725 REASON: pleural effusion ORDERING PHYSICIAN: TANIA DEAN PROCEDURE: CHEST W - CT CHEST W/CONTRAST CT CHEST WITH CONTRAST INDICATION: Pleural effusion evaluation TECHNIQUE: Routine axial images using 5 mm slice thickness were acquired from the lung apices to the bases after the administration of 100 mL of Isovue 370 IV contrast.Coronal and sagittal reformatted images acquired for interpretation. CT was performed with one or more of the following dose reduction techniques: Automated exposure control, adjustment of the mA and/or kV according to patient size, or use of iterative reconstruction technique. COMPARISON: None FINDINGS: The heart size is normal. No pericardial effusion noted. The visualized great vessels and thoracic aorta are within normal limits. The trachea and airways are patent. Large left lower lobe consolidation. Scattered inferior right upper lobe opacities and scattered right lower lobe opacities. Minimal posterior left upper lobe opacities. Small lingular consolidation. No axillary, hilar, or mediastinal lymphadenopathy. No pleural effusion or pneumothorax identified. Limited views of the upper abdomen appear normal. Visible osseous structures are intact. IMPRESSION: Extensive left greater than right lung pneumonia, without pleural effusion. ASSESSMENT: Sepsis, POA Left lung pneumonia, POA B/L lung infiltrate, POA Acute hypoxic respiratory failure, POA Acute mild rhabdomyolysis, POA PLAN: Patient to be admitted to ICU We will consult critical Care team Patient will continue with oxygen supplementation to keep O2 sat greater than 92% Continue with nebulizer treatment with ipratropium/albuterol every 6 hours scheduled Continue with normal saline at 75 mL/hour for rhabdomyolysis Patient will continue with broad-spectrum IV antibiotics with Rocephin1 g Q 24 hours Continue with GI and DVT prophylaxis We will repeat labs tomorrow Follow on respiratory cultures and stool culture Patient is a full code ATTESTATION BY PHYSICIAN I have seen and examined the patient. I reviewed the documentation, medical decision making, and treatment plan as noted by the mid-level provider above. I agree with the findings and plan of care. Hemant Ferreira MD, KEERTI K MD Jul 21, 2024 15:20
[2024-07-21] MEDS: CEFTRIAXONE 2GM VIAL IVPB SCH (16:26)
[2024-07-21] MEDS ORDERED: MAGNESIUM 2GM PREMIX 50ML 50 ML IV PRN (21:00)
[2024-07-21] MEDS ORDERED: ZOSYN 3.375GM +NS 50ML IV SCH (21:00)
--- NOTE | 2024-07-21 22:08 | NUR ---
PER ASSOCIATE PROFESSOR OF COMMUNICATION BRIAN WATKINS MOLD FILLER PLASTIC DOLLS; CHANGE ARTERIAL DOPPER TO VENOUS DOPPLER STUDY TO RULE OUT DVT
[2024-07-21] MEDS: FAMOTIDINE 20MG VIAL IV SCH (22:18)
[2024-07-22] VITALS (19 sets, daily range): BP systolic 112–136; BP diastolic 55–76; PULSE 56–112; RESP 16–20; TEMP 97.7–98.2; O2SAT 90–100
[2024-07-22] MEDS: ZOSYN 3.375GM +NS 50ML IV SCH (02:00)
--- NOTE | 2024-07-22 04:43 | NUR ---
[facility]PITALIST PIGMENT SUPPLIER PENDING CALL FROM Abida RAINES. BRIAN RAINES MADE AWARE OF PT HAVING LOOSE STOOLS, ORDER GIVEN AND CARRIED OUT.
[2024-07-22] MEDS: LOPERAMIDE HCL 2 MG CAP PO PRN (05:00)
[2024-07-22 06:21] LABS: BASOPHILS # (AUTO) 0.05 K/uL (0.00-0.20); BASOPHILS % (AUTO) 0.2 % (0.0-5.0); HEMATOCRIT 38.2 % (42-54); LYMPHOCYTES # (AUTO) 1.9 K/uL (1.0-4.8); LYMPHOCYTES % (AUTO) 7.7 % (21.0-51.0); MEAN CORPUSCULAR HEMOGLOBIN 29.1 pg (27.0-33.0); MEAN CORPUSCULAR HGB CONC 32.5 g/dL (32.0-36.0); MEAN CORPUSCULAR VOLUME 89.7 fL (79-99); MONOCYTES % (AUTO) 4.1 % (3.0-13.0); NEUTROPHILS # (AUTO) 21.3 K/uL (1.8-7.7); NEUTROPHILS % (AUTO) 86.4 % (40.0-77.0); PLATELET COUNT (AUTO) 414 K/uL (130-400); RED BLOOD CELL COUNT(AUTO) 4.26 MIL/uL (4.50-6.20); WHITE BLOOD COUNT (AUTO) 24.7 K/uL (4.8-10.8)
[2024-07-22 06:47] LABS: ALBUMIN 2.8 g/dL (3.5-5.0); BILIRUBIN,TOTAL 0.3 mg/dL (0.2-1.0); CREATININE 1.1 mg/dL (0.5-1.3); MAGNESIUM 2.4 mg/dL (1.80-2.40); POTASSIUM 4.1 mmol/L (3.5-5.1); TOTAL PROTEIN, SERUM 6.7 g/dL (6.0-8.3)
--- NOTE | 2024-07-22 06:53 | NUR ---
[facility] HOSPITALIST RUBBER STAMP MAKER REGARDING CRITICAL LAB VALUES, PENDING CALL BACK FROM TANIA DEAN NP.
--- NOTE | 2024-07-22 08:10 | NUR ---
DCP: HOME Pt lives at home with his parents, Olivia [address] [phone]. Pt works for the [employer], is independent and able to do self care, uses no DME or in home care services. PCP is Laura Frausto and uses [facility] for rx. Pt denies dc needs and will return home with parents Addendum: 07/22/24 at 0812 by BRANDON LISA Amended: Links added.
[2024-07-22] MEDS: ENOXAPARIN SODIUM 30 MG/0.3 ML SQ SCH (09:28)
--- NOTE | 2024-07-22 09:38 | HMCIMG ---
US VENOUS DOPPLER BILATERAL REASON: rule out DVT COMPARISON: None Technique: Bilateral venous doppler ultrasound was performed with spectral analysis and color flow imaging technique. FINDINGS: There is a normal appearance of the common femoral, deep femoral, the profunda femoris and popliteal veins. Proximal calf veins appear normal as well. There is normal response to compression and augmentation. There is no evidence of deep venous thrombosis. IMPRESSION: Normal bilateral lower extremity venous Doppler ultrasound.
--- NOTE | 2024-07-22 10:36 | PN ---
[facility] PROGRESS NOTE Date of Service: Jul 22, 2024 Time of Service: 10:30 SUBJECTIVE: 23-year-old with denies any pertinent medical history presented to the emergency department with shortness of breaths for three days now. Patient reported cough and nasal congestion. He denies any fever chills body aches. Apparently patient was sent by Estela Proctor for low oxygen saturation and was diagnosed with pneumonia. In the ED, his initial vital signs showed temperature of 102.2 F, pulse 114, respiratory rate 24, BP 154/79, O2 sat 90% on room air. Laboratory data reviewed, WBC 11.2, left shift noted, chloride 96, random glucose 146, total creatinine kinase 254, albumin 3.4. Chest x-ray showed infiltrate or effusion in the left lung base. He was referred to the hospitalist for further evaluation and management. 07/21/2024 - patient is seen at bedside. Patient mentioned about having 1 epis ode of vomiting 4 days ago when all the symptoms started and also started having diarrhea since that day. He denies any fevers chills or body aches. Patient is hemodynamically stable with temperature 98.1, pulse 90, respiratory rate 16, blood pressure 112/55, saturating at 93% on 4 L O2 nasal cannula. Labs show WBC 11.1, hemoglobin 13.1 And chemistries show sodium 134, potassium 3.7, creatinine 1.2, BUN 12. Patient is nonreactive for HIV1 and 2 antibody, Influenza type A, Influenza type B, COVID. Respiratory cultures are still pending. Plan to order stool culture, Legionella urine antigen. Critical Care has been consulted and we will follow their recommendations. Patient will be continued with doxycycline, ceftriaxone, methylprednisolone. Patient will be followed closely. 07/22/2024 - patient is seen at bedside. Patient feels much better, Patient continues to have shortness of breath, diarrhea, stool C diff negative. Patient denies fevers, chills or body aches. Patient is hemodynamically stable with a temperature of 97.7, pulse 75, respiratory rate 18 , blood pressure 112/70 , saturating at 99% on 3.5 L oxygen through nasal cannula. Labs show increased WBC of 24.7, hemoglobin 12.4, chemistries show sodium 139, potassium 4.1, creatinine 1.1, BUN 24 , patient had elevated lactic acid of 2.7 early this morning which trended down to 2.2. Patient has been started on Zosyn and will be continued on methylprednisolone and doxycycline. Still awaiting on respiratory culture, stool culture, Legionella urine antigen test We will follow critical Care recommendations, patient will be started on soft GI diet. REVIEW OF SYSTEMS CONSTITUTIONAL: Denies fevers, chills, or night sweats. No unintentional weight loss reported. NEUROLOGICAL: Denies headache, amaurosis fugax, motor weakness, sensory deficit, vertigo/spinning sensation, gait abnormalities, or tremors. ENT: No hearing loss, otalgia, otorrhea, rhinitis, rhinorrhea, hoarseness, or sore throat. CARDIOVASCULAR: Denies any exertional angina, dyspnea on exertion, orthopnea, paroxysmal nocturnal dyspnea, palpitations, life-threatening arrhythmias, claudication. PULMONARY: Denies any shortness of breath, cough, phlegm/sputum, hemoptysis, pleuritic chest pain. SLEEP: Denies morning headaches, daytime somnolence or napping. Denies difficulty falling asleep, staying asleep, waking from sleep. Denies knowledge of snoring. GASTROINTESTINAL: Denies any type of dysphagia to either liquids or solids. Denies nausea, vomiting, pyrosis, early satiety, abdominal pain, diarrhea, constipation, or changes in stool consistency or caliber. Denies coffee-ground emesis, hematemesis, hematochezia, or melanotic stools. GENITOURINARY: Denies frequency, urgency, nocturia, hematuria or incontinence (Storage/Irritative symptoms.) Low urinary stream, straining to void, urinary intermittency or hesitancy, splitting of the voiding stream, terminal dribbling. ENDOCRINOLOGIC: Denies polyuria, polydipsia, polyphagia or heat/cold intolerances. HEMATOLOGIC: Denies thrombophilia/previous clots, or coagulopathy/bleeding disorders. ONCOLOGIC: Denies personal history of malignancy. DERMATOLOGIC: Denies rashes or pruritus. PSYCHIATRIC: Denies any suicidal or homicidal ideation. Denies hallucinations. PHYSICAL EXAM GENERAL APPEARANCE: The patient is awake, alert, and oriented, in no acute cardiopulmonary distress. NEUROLOGICAL: Cranial nerves II-XII grossly intact. Motor is 5/5 in bilateral upper and lower extremities proximal to distal. No sensory deficits. HEENT: Face is symmetric. Pupils are equal and reactive. Extraocular movements are intact. NECK: Supple. No JVD. No thyromegaly. No submental, submandibular, pre- /postauricular, occipital or supraclavicular lymphadenopathy. CHEST: Normal chest expansion. No Telemetry. LUNGS: Absence of any rales, rhonchi or any wheezing. CARDIOVASCULAR: Regular. S1 and S2 normal. No appreciable rubs, murmurs or gallops. ABDOMEN: Soft, nontender, and nondistended. There is no rebound, voluntary guarding, or rigidity. : Deferred. No Thomas. EXTREMITIES: Non-edematous and not cyanotic. No clubbing. Good capillary refill. SKIN: No skin breakdown. Vital Signs (last 8hr) Date Time Temp Pulse Resp B/P (MAP) Pulse Ox O2 Delivery O2 Flow Rate FiO2 07/22/24 08: 97.7 75 18 112/70 99 Nasal Cannula 3.5 07/22/24 07:11 56 20 N/Cannula Low lpm 4.0 36 07/22/24 07:10 56 20 07/22/24 03:25 97.9 63 16 118/55 95 Nasal Cannula 3.5 LABS: Laboratory: Test 07/22/24 10:08 07/22/24 06:08 07/21/24 19:22 07/21/24 13:38 Range/Units Lactic Acid Level 2.2 0.8-2.5 mmol/L White Blood Count 24.7 H 4.8-10.8 K/uL Red Blood Count 4.26 L 4.50-6.20 MIL/uL Hemoglobin 12.4 L 14.0-18.0 g/dL Hematocrit 38.2 L 42-54 % Mean Corpuscular Volume 89.7 79-99 fL Mean Corpuscular Hemoglobin 29.1 27.0-33.0 pg Mean Corpuscular Hemoglobin Concent 32.5 32.0-36.0 g/dL Red Cell Distribution Width 13.0 11.0-15.5 % Platelet Count 414 #H 130-400 K/uL Mean Platelet Volume 9.9 7.5-10.5 fL Immature Granulocyte % (Auto) 1.6 H 0-1 % Neutrophils (%) (Auto) 86.4 H 40.0-77.0 % Lymphocytes (%) (Auto) 7.7 L 21.0-51.0 % Monocytes (%) (Auto) 4.1 3.0-13.0 % Eosinophils (%) (Auto) 0.0 0.0-8.0 % Basophils (%) (Auto) 0.2 0.0-5.0 % Neutrophils # (Auto) 21.3 H 1.8-7.7 K/uL Lymphocytes # (Auto) 1.9 1.0-4.8 K/uL Monocytes # (Auto) 1.0 0.1-1.0 K/uL Eosinophils # (Auto) 0.00 0.00-0.70 K/uL Basophils # (Auto) 0.05 0.00-0.20 K/uL Absolute Immature Granulocyte (auto 0.40 0-1 K/uL Nucleated Red Blood Cells 0.0 0.0-0.19 % Sodium Level 139 136-145 mmol/L Potassium Level 4.1 3.5-5.1 mmol/L Chloride Level 104 101-111 mmol/L Carbon Dioxide Level 24 21-32 mmol/L Blood Urea Nitrogen 24 H 7-18 mg/dL Creatinine 1.1 0.5-1.3 mg/dL Glomerular Filtration Rate Calc 97 >90 mL/min Random Glucose 164 H 70-105 mg/dL Total Calcium 9.4 8.5-10.1 mg/dL Magnesium Level 2.40 1.80-2.40 mg/dL Total Bilirubin 0.3 0.2-1.0 mg/dL Aspartate Amino Transf (AST/SGOT) 17 10-37 U/L Alanine Aminotransferase (ALT/SGPT) 38 12-78 U/L Alkaline Phosphatase 66 50-136 U/L Total Protein 6.7 6.0-8.3 g/dL Albumin 2.8 L 3.5-5.0 g/dL Procalcitonin < 0.05 L 0.05-0.5 ng/mL C. difficile Antigen and Toxins A,B See comments NEG HIV (1&2) Antibody Non-Reactive Negative HIV P24 Antigen, Qualitative Non-Reactive Negative Test 07/20/24 20:06 07/20/24 18:46 07/20/24 18:05 07/20/24 15:23 Range/Units Blood Gas Specimen Type Arterial Arterial Blood pH 7.463 H 7.350-7.450 Arterial Blood Partial Pressure CO2 34 L 35-48 mmHg Arterial Blood Partial Pressure O2 61.3 L 83.0-108.0 mmHg Arterial Blood HCO3 23.9 21.0-28.0 mmol/L Arterial Blood Oxygen Saturation 93.0 L 94.0-98.0 % Arterial Blood Base Excess 0.8 -2.0-3.0 mmol/L Blood Gas Temperature 37.0 35.5-37.0 CELSIUS Blood Gas Flow-by 2.00 0.00-15.00 L/min Blood Gas Vent Mode NC ROOM AIR FiO2 28.0 % Blood Gas Specimen Comment RB RN MICHAEL Urine Color COLORLESS YELLOW Urine Appearance CLEAR CLEAR Urine pH 6.0 5.0-8.0 Urine Specific Concepcion 1.014 1.001-1.031 Urine Protein NEGATIVE NEGATIVE mg/dL Urine Glucose (UA) NEGATIVE NEGATIVE mg/dL Urine Ketones NEGATIVE NEGATIVE mg/dL Urine Occult Blood NEGATIVE NEGATIVE Urine Nitrate NEGATIVE NEGATIVE Urine Bilirubin NEGATIVE NEGATIVE mg/dL Urine Urobilinogen 0.2 0.2-1.0 mg/dL Urine Leukocyte Esterase NEGATIVE NEGATIVE Sukhi/uL D-Dimer Quantitative (PE/DVT) 1846 *H 0-500 ng/mL White Cell Morphology Comment See comments Direct Bilirubin 0.1 0.0-0.3 mg/dL Total Creatine Kinase 254 H 21-232 U/L Troponin I High Sensitivity 4 4-75 ng/L B-Type Natriuretic Peptide 8 0-100 pg/mL Test 07/20/24 14:51 Range/Units Influenza Type A Antigen Negative For Type A NEGATIVE Influenza Type B Antigen Negative For Type B NEGATIVE SARS-CoV-2 Antigen (Rapid) PRESUMPTIVE NEGATIVE NEGATIVE Group A Streptococcus Rapid negative NEGATIVE Current Medications Medications (Trade) Dose Ordered Sig/Carol Route PRN Reason Start Time Stop Time Status Last Admin Dose Admin Acetaminophen (TYLenol 325MG TAB) 650 mg Q4H PRN PO TEMPERATURE GREATER THAN 101.5 07/20/24 17:30 08/19/24 17:29 07/20/24 21:50 650 MG Acetaminophen (TYLenol 325MG TAB) 650 mg Q6H PRN PO MILD PAIN (1-3) 07/20/24 17:30 08/19/24 17:29 Acetylcysteine (MUComyst 20% 4ML) 400mg = 2ml [id number] IH 07/21/24 12:00 08/20/24 11:59 07/22/24 10:21 800 MG Albuterol (DUOneb) 1 UDVIAL [id number] IH 07/21/24 00:00 07/20/24 23:48 DC Albuterol (DUOneb) 1 UDVIAL [id number] IH 07/21/24 02:00 08/20/24 01:59 07/22/24 10:21 1 UDVIAL Albuterol (DUOneb) 1 UDVIAL [id number] IH 07/20/24 18:00 07/20/24 22:23 DC 07/20/24 20:14 1 UDVIAL Ceftriaxone Sodium (ROCEphine 1G INJ) 1 gm Q24H IVPB 07/20/24 17:30 07/21/24 08:10 DC Ceftriaxone Sodium (Rocephin 2gm Inj) 2 gm Q24H IVPB 07/21/24 17:30 07/21/24 20:36 DC 07/21/24 16:26 2 GM Doxycycline Hyclate 250 ml @ 125 mls/hr Q12H IV 07/20/24 22:30 07/30/24 22:29 07/21/24 22:10 125 MLS/HR Enoxaparin Sodium (Lovenox) 30 mg DAILY SQ 07/22/24 09:00 08/21/24 08:59 07/22/24 09:28 30 MG Famotidine (Pepcid 20mg Vial) 20 mg BID IV 07/21/24 21:00 08/20/24 20:59 07/22/24 09:27 20 MG Furosemide (LASix 20MG VIAL) 20 mg Q12H IV 07/20/24 17:30 07/20/24 22:18 DC 07/20/24 18:10 20 MG Loperamide HCl (Imodium) 2 mg AD PRN PO AFTER EACH LOOSE STOOL 07/22/24 05:00 08/21/24 04:59 07/22/24 05:00 2 MG Magnesium Sulfate 50 ml @ 0 mls/hr PROTOCOL PRN IV Hypomagnesemia 07/21/24 21:00 08/20/24 20:59 Methylprednisolone Sodium Succinate (Solu-medROL 125MG) 40 mg Q6H IVP 07/21/24 22:00 08/20/24 21:59 07/22/24 09:27 40 MG Methylprednisolone Sodium Succinate (Solu-medROL 125MG) 60 mg Q6H IVP 07/21/24 04:00 07/21/24 20:49 DC 07/21/24 16:26 60 MG Ondansetron HCl (zoFRAN 4MG INJ) 4 mg Q6H PRN IVP NAUSEA/VOMITING 07/20/24 17:30 08/19/24 17:29 Piperacillin Sod/ Tazobactam Sod (Zosyn 3.375gm+NS 50ml) 3.375 gm Q8H IV 07/21/24 21:00 07/21/24 23:01 DC Piperacillin Sod/ Tazobactam Sod (Zosyn 3.375gm+NS 50ml) 3.375 gm Q8H IV 07/22/24 01:00 08/01/24 00:59 07/22/24 09:27 3.375 GM Sodium Chloride 1,000 ml @ 75 mls/hr [id number] IV 07/20/24 17:30 08/19/24 17:29 07/22/24 09:28 75 MLS/HR DIAGNOSTICS / RADIOLOGY: PATIENT: YESSI MADDEN MR#: [id number] : 2000 SEX: M AGE: 23 LOCATION: [facility] ORDER 43 STATUS: ADM IN REPORT#: [id number] SERVICE 34 REASON: rule out DVT ORDERING PHYSICIAN: JAIRO PUENTE PROCEDURE: VENOUS GI - US VENOUS DOPPLER BILATERAL US VENOUS DOPPLER BILATERAL REASON: rule out DVT COMPARISON: None Technique: Bilateral venous doppler ultrasound was performed with spectral analysis and color flow imaging technique. FINDINGS: There is a normal appearance of the common femoral, deep femoral, the profunda femoris and popliteal veins. Proximal calf veins appear normal as well. There is normal response to compression and augmentation. There is no evidence of deep venous thrombosis. IMPRESSION: Normal bilateral lower extremity venous Doppler ultrasound. DICTATED BY: JUAN CARLOS GANNON MD DATE: 07/22/24933 ELECTRONICALLY SIGNED BY: JUAN CARLOS GANNON MD DATE: 07/22/24937 ASSESSMENT: Sepsis, POA Left lung pneumonia, POA B/L lung infiltrate, POA Acute hypoxic respiratory failure, POA Acute mild rhabdomyolysis, POA PLAN: Patient to be admitted to ICU We will consult critical Care team Patient will continue with oxygen supplementation to keep O2 sat greater than 92% Continue with nebulizer treatment with ipratropium/albuterol every 6 hours scheduled Continue with normal saline at 75 mL/hour for rhabdomyolysis Patient will continue with broad-spectrum IV antibiotics with Rocephin1 g Q 24 hours Continue with GI and DVT prophylaxis We will repeat labs tomorrow Follow on respiratory cultures and stool culture Patient is a full code ATTESTATION BY PHYSICIAN I have seen and examined the patient. I reviewed the documentation, medical decision making, and treatment plan as noted by the mid-level provider above. I agree with the findings and plan of care. Hemant Ferreira MD, KEERTI K MD Jul 22, 2024 10:36
--- NOTE | 2024-07-22 15:38 | PN ---
[facility] PROGRESS NOTE Date Patient Seen: Jul 22, 2024 Time of Visit: 1157 Supervising Physician: Dr. Esquivel Primary Care Physician: Lisbet Matthews MD Outpatient Specialists: Attending Physician: Ilia Rosado MD Inpatient Consults: BIS PROBLEM LIST: Acute hypoxemic respiratory failure, POA on 4 L via NC Sepsis, POA w/ Organ dysfunction (respiratory) Gram Negative Bilateral lung pneumonia with L> R left side pleural effusion ruled out per CT chest Dehydration POA mild rhabdomyolysis Mild hypoalbuminemia Elevated D-Dimer POA Obesity BMI 30.6 INTERVAL HISTORY: 07/22 patient was seen and examined at bedside with family present. At time of visit patient has been weaned off oxygen and is on room air. Patient states shortness of breadth has improved significantly. Patient denies any chest pain at time of visit. Patient denies any nausea vomiting or abdominal pain. He is tolerating p.o. diet. He is having bowel movements. At this time we will dis continue patient's Solu-Medrol, and transition patient to prednisone 40 mg daily to complete a total of five days. Patient to continue on IV antibiotics. We will continue to monitor patient closely REVIEW OF SYSTEMS: 12 Point review of system reviewed with patient all permanent positives mentioned above otherwise negative PHYSICAL EXAM: GENERAL: alert, weak, awake oriented x 3 HEENT: EOMI, Sclera non icteric, moist mucosa NECK: Supple, no JVD, trachea midline LUNGS: Rhonchi breath sounds bilaterally. No wheezes HEART: Regular rate and rhythm. Normal S1 and S2, without murmurs ABD: Abdomen soft, nontender. Bowel sounds present EXT: No clubbing cyanosis or edema NEURO: Alert and oriented to person, follows commands Vital Signs (last 8hr) Date Time Temp Pulse Resp B/P (MAP) Pulse Ox O2 Delivery O2 Flow Rate FiO2 07/22/24 14:40 74 20 N/A Room Air 21 07/22/24 14:37 74 20 07/22/24 11:36 98.1 112 18 136/68 93 Room Air 07/22/24 10:23 62 20 N/Cannula Low lpm 2.0 28 07/22/24 10:21 62 20 07/22/24 08:29 97.7 75 18 112/70 99 Nasal Cannula 3.5 LABS: Hematology Labs: Test 07/22/24 06:08 Range/Units White Blood Count 24.7 H 4.8-10.8 K/uL Red Blood Count 4.26 L 4.50-6.20 MIL/uL Hemoglobin 12.4 L 14.0-18.0 g/dL Hematocrit 38.2 L 42-54 % Mean Corpuscular Volume 89.7 79-99 fL Mean Corpuscular Hemoglobin 29.1 27.0-33.0 pg Mean Corpuscular Hemoglobin Concent 32.5 32.0-36.0 g/dL Red Cell Distribution Width 13.0 11.0-15.5 % Platelet Count 414 #H 130-400 K/uL Mean Platelet Volume 9.9 7.5-10.5 fL Immature Granulocyte % (Auto) 1.6 H 0-1 % Neutrophils (%) (Auto) 86.4 H 40.0-77.0 % Lymphocytes (%) (Auto) 7.7 L 21.0-51.0 % Monocytes (%) (Auto) 4.1 3.0-13.0 % Eosinophils (%) (Auto) 0.0 0.0-8.0 % Basophils (%) (Auto) 0.2 0.0-5.0 % Neutrophils # (Auto) 21.3 H 1.8-7.7 K/uL Lymphocytes # (Auto) 1.9 1.0-4.8 K/uL Monocytes # (Auto) 1.0 0.1-1.0 K/uL Eosinophils # (Auto) 0.00 0.00-0.70 K/uL Basophils # (Auto) 0.05 0.00-0.20 K/uL Absolute Immature Granulocyte (auto 0.40 0-1 K/uL Nucleated Red Blood Cells 0.0 0.0-0.19 % Chemistry Labs: Test 07/22/24 10:08 07/22/24 06:08 Range/Units Lactic Acid Level 2.2 0.8-2.5 mmol/L Sodium Level 139 136-145 mmol/L Potassium Level 4.1 3.5-5.1 mmol/L Chloride Level 104 101-111 mmol/L Carbon Dioxide Level 24 21-32 mmol/L Blood Urea Nitrogen 24 H 7-18 mg/dL Creatinine 1.1 0.5-1.3 mg/dL Glomerular Filtration Rate Calc 97 >90 mL/min Random Glucose 164 H 70-105 mg/dL Total Calcium 9.4 8.5-10.1 mg/dL Magnesium Level 2.40 1.80-2.40 mg/dL Total Bilirubin 0.3 0.2-1.0 mg/dL Aspartate Amino Transf (AST/SGOT) 17 10-37 U/L Alanine Aminotransferase (ALT/SGPT) 38 12-78 U/L Alkaline Phosphatase 66 50-136 U/L Total Protein 6.7 6.0-8.3 g/dL Albumin 2.8 L 3.5-5.0 g/dL Procalcitonin < 0.05 L 0.05-0.5 ng/mL Coagulation Labs: Test 07/20/24 18:05 Range/Units D-Dimer Quantitative (PE/DVT) 1846 *H 0-500 ng/mL DIAGNOSTICS / RADIOLOGY RESULTS: na PLAN NEURO: Minimize central acting medications as possible. Maintain fall precautions, adequate lighting during the day PULMONARY: Supplemental 02 as needed. Maintain aspiration precautions at all times CARDIOVASCULAR: Follow hemodynamics. Vital signs per facility protocol GI & NUTRITION: Continue with nutritional support. Continue stool softeners and laxatives as needed. KIDNEYS & ELECTROLYTES: Strict monitoring of intake, output and overall fluid balance. Avoid nephrotoxic medications to the extent possible. Medications to be dosed according to renal function. Monitor electrolytes and replace as needed ENDOCRINE: Maintain blood glucose between 100-180 at all times. Hypoglycemia protocol in place INFECTIOUS DISEASE: Trend temperature, WBC and procalcitonin level Follow cultures, deescalate antibiotics as soon as possible. Panculture if new onset fever ONCOLOGY/HEMATOLOGY/COAGULATION: Monitor for s/s of bleeding Monitor hemoglobin, coagulation studies as needed SKIN: Pressure ulcer prevention per facility protocol Specialty mattress ORTHO/REHAB: Continue PT/OT Prophylaxis: Continue GI and DVT prophylaxis Code Status: Full Resuscitation Disposition: TBD Other: Case discussed with supervising physician plan of care agreed upon RADHA CLIFTON Jul 22, 2024 15:38
--- NOTE | 2024-07-22 15:41 | HMCIMG ---
CHEST 2VWS REASON: SOB COMPARISON: 07/20/2024 FINDINGS: Two views of the chest were obtained. There is patchy infiltrate in the left lung base, unchanged. Lungs are otherwise clear. Heart, mediastinum and bony thorax appear unremarkable. There is no pulmonary vascular congestion or pleural effusion. IMPRESSION: 1. Left lower lobe infiltrate consistent with pneumonia.
[2024-07-23] VITALS (15 sets, daily range): BP systolic 125–140; BP diastolic 57–79; PULSE 56–91; RESP 18–20; TEMP 97.8–98.2; O2SAT 92–98
[2024-07-23 05:59] LABS: BASOPHILS # (AUTO) 0.06 K/uL (0.00-0.20); BASOPHILS % (AUTO) 0.3 % (0.0-5.0); EOSINOPHILS # (AUTO) 0.02 K/uL (0.00-0.70); EOSINOPHILS % (AUTO) 0.1 % (0.0-8.0); IMMATURE GRANULOCYTE ABSOLUTE 0.65 K/uL (0-1); LYMPHOCYTES % (AUTO) 13.9 % (21.0-51.0); MEAN CORPUSCULAR HEMOGLOBIN 29.6 pg (27.0-33.0); MEAN CORPUSCULAR VOLUME 89.8 fL (79-99); MONOCYTES # (AUTO) 1.3 K/uL (0.1-1.0); MONOCYTES % (AUTO) 5.8 % (3.0-13.0); NEUTROPHILS # (AUTO) 16.4 K/uL (1.8-7.7); NEUTROPHILS % (AUTO) 76.9 % (40.0-77.0); NUCLEATED RED BLOOD CELLS 0.1 % (0.0-0.19); PLATELET COUNT (AUTO) 380 K/uL (130-400); RED BLOOD CELL COUNT(AUTO) 4.12 MIL/uL (4.50-6.20); RED CELL DISTRIBUTION WIDTH 13.2 % (11.0-15.5); WHITE BLOOD COUNT (AUTO) 21.4 K/uL (4.8-10.8)
[2024-07-23 06:18] LABS: ALBUMIN 2.7 g/dL (3.5-5.0); BILIRUBIN,TOTAL 0.3 mg/dL (0.2-1.0); CREATININE 1.1 mg/dL (0.5-1.3); MAGNESIUM 2.3 mg/dL (1.80-2.40); POTASSIUM 3.5 mmol/L (3.5-5.1); TOTAL PROTEIN, SERUM 6.3 g/dL (6.0-8.3)
--- NOTE | 2024-07-23 09:02 | PN ---
[facility] PROGRESS NOTE Date of Service: Jul 23, 2024 Time of Service: 08:54 SUBJECTIVE: 23-year-old with denies any pertinent medical history presented to the emergency department with shortness of breaths for three days now. Patient reported cough and nasal congestion. He denies any fever chills body aches. Apparently patient was sent by Estela Proctor for low oxygen saturation and was diagnosed with pneumonia. In the ED, his initial vital signs showed temperature of 102.2 F, pulse 114, respiratory rate 24, BP 154/79, O2 sat 90% on room air. Laboratory data reviewed, WBC 11.2, left shift noted, chloride 96, random glucose 146, total creatinine kinase 254, albumin 3.4. Chest x-ray showed infiltrate or effusion in the left lung base. He was referred to the hospitalist for further evaluation and management. 07/21/2024 - patient is seen at bedside. Patient mentioned about having 1 epis ode of vomiting 4 days ago when all the symptoms started and also started having diarrhea since that day. He denies any fevers chills or body aches. Patient is hemodynamically stable with temperature 98.1, pulse 90, respiratory rate 16, blood pressure 112/55, saturating at 93% on 4 L O2 nasal cannula. Labs show WBC 11.1, hemoglobin 13.1 And chemistries show sodium 134, potassium 3.7, creatinine 1.2, BUN 12. Patient is nonreactive for HIV1 and 2 antibody, Influenza type A, Influenza type B, COVID. Respiratory cultures are still pending. Plan to order stool culture, Legionella urine antigen. Critical Care has been consulted and we will follow their recommendations. Patient will be continued with doxycycline, ceftriaxone, methylprednisolone. Patient will be followed closely. 07/22/2024 - patient is seen at bedside. Patient feels much better, Patient continues to have shortness of breath, diarrhea, stool C diff negative. Patient denies fevers, chills or body aches. Patient is hemodynamically stable with a temperature of 97.7, pulse 75, respiratory rate 18 , blood pressure 112/70 , saturating at 99% on 3.5 L oxygen through nasal cannula. Labs show increased WBC of 24.7, hemoglobin 12.4, chemistries show sodium 139, potassium 4.1, creatinine 1.1, BUN 24 , patient had elevated lactic acid of 2.7 early this morning which trended down to 2.2. Patient has been started on Zosyn and will be continued on methylprednisolone and doxycycline. Still awaiting on respiratory culture, stool culture, Legionella urine antigen test We will follow critical Care recommendations, patient will be started on soft GI diet. 07/23/2024 - patient is seen at bedside, patient feels better breathing, he continues to have diarrhea. Patient denies fevers, chills, or body aches. Patient is hemodynamically stable with temperature of 98.1, pulse 69, respiratory rate 18 , blood pressure 133/79 and saturating at 98% on room air . Labs show WBC down to 21.4, hemoglobin 12.2 And chemistries show sodium 144, potassium 3.5, creatinine 1.1, BUN 25. Still awaiting on respiratory culture, stool culture. Legionella urine antigen kit test came negative. Patient is started on Robitussin and continued on Zosyn, doxycycline. Patient is stopped on Solu-Medrol and converted to prednisone 40 mg p.o. patient is getting Imodium for diarrhea. Pulmonology is following the case and will follow their recommendations patient will be followed closely. REVIEW OF SYSTEMS CONSTITUTIONAL: Denies fevers, chills, or night sweats. No unintentional weight loss reported. NEUROLOGICAL: Denies headache, amaurosis fugax, motor weakness, sensory deficit, vertigo/spinning sensation, gait abnormalities, or tremors. ENT: No hearing loss, otalgia, otorrhea, rhinitis, rhinorrhea, hoarseness, or sore throat. CARDIOVASCULAR: Denies any exertional angina, dyspnea on exertion, orthopnea, paroxysmal nocturnal dyspnea, palpitations, life-threatening arrhythmias, claudication. PULMONARY: Denies any shortness of breath, cough, phlegm/sputum, hemoptysis, pleuritic chest pain. SLEEP: Denies morning headaches, daytime somnolence or napping. Denies difficu lty falling asleep, staying asleep, waking from sleep. Denies knowledge of snoring. GASTROINTESTINAL: Denies any type of dysphagia to either liquids or solids. Denies nausea, vomiting, pyrosis, early satiety, abdominal pain, diarrhea, constipation, or changes in stool consistency or caliber. Denies coffee-ground emesis, hematemesis, hematochezia, or melanotic stools. GENITOURINARY: Denies frequency, urgency, nocturia, hematuria or incontinence (Storage/Irritative symptoms.) Low urinary stream, straining to void, urinary intermittency or hesitancy, splitting of the voiding stream, terminal dribbling. ENDOCRINOLOGIC: Denies polyuria, polydipsia, polyphagia or heat/cold intol erances. HEMATOLOGIC: Denies thrombophilia/previous clots, or coagulopathy/bleeding disorders. ONCOLOGIC: Denies personal history of malignancy. DERMATOLOGIC: Denies rashes or pruritus. PSYCHIATRIC: Denies any suicidal or homicidal ideation. Denies hallucinations. PHYSICAL EXAM GENERAL APPEARANCE: The patient is awake, alert, and oriented, in no acute cardiopulmonary distress. NEUROLOGICAL: Cranial nerves II-XII grossly intact. Motor is 5/5 in bilateral upper and lower extremities proximal to distal. No sensory deficits. HEENT: Face is symmetric. Pupils are equal and reactive. Extraocular movements are intact. NECK: Supple. No JVD. No thyromegaly. No submental, submandibular, pre- /postauricular, occipital or supraclavicular lymphadenopathy. CHEST: Normal chest expansion. No Telemetry. LUNGS: Absence of any rales, rhonchi or any wheezing. CARDIOVASCULAR: Regular. S1 and S2 normal. No appreciable rubs, murmurs or gallops. ABDOMEN: Soft, nontender, and nondistended. There is no rebound, voluntary guarding, or rigidity. : Deferred. No Thomas. EXTREMITIES: Non-edematous and not cyanotic. No clubbing. Good capillary refill. SKIN: No skin breakdown. Vital Signs (last 8hr) Date Time Temp Pulse Resp B/P (MAP) Pulse Ox O2 Delivery O2 Flow Rate FiO2 07/23/24 08:29 98.1 69 18 133/79 98 Nasal Cannula 2.0 07/23/24 07:49 74 20 N/Cannula Low lpm 2.0 28 07/23/24 07:46 74 20 07/23/24 04:50 97.9 61 18 138/60 95 Nasal Cannula 2.0 07/23/24 02:11 91 20 LABS: Laboratory: Test 07/23/24 05:45 07/22/24 10:08 07/21/24 19:22 07/21/24 13:38 Range/Units White Blood Count 21.4 H 4.8-10.8 K/uL Red Blood Count 4.12 L 4.50-6.20 MIL/uL Hemoglobin 12.2 L 14.0-18.0 g/dL Hematocrit 37.0 L 42-54 % Mean Corpuscular Volume 89.8 79-99 fL Mean Corpuscular Hemoglobin 29.6 27.0-33.0 pg Mean Corpuscular Hemoglobin Concent 33.0 32.0-36.0 g/dL Red Cell Distribution Width 13.2 11.0-15.5 % Platelet Count 380 130-400 K/uL Mean Platelet Volume 10.0 7.5-10.5 fL Immature Granulocyte % (Auto) 3.0 H 0-1 % Neutrophils (%) (Auto) 76.9 40.0-77.0 % Lymphocytes (%) (Auto) 13.9 L 21.0-51.0 % Monocytes (%) (Auto) 5.8 3.0-13.0 % Eosinophils (%) (Auto) 0.1 0.0-8.0 % Basophils (%) (Auto) 0.3 0.0-5.0 % Neutrophils # (Auto) 16.4 H 1.8-7.7 K/uL Lymphocytes # (Auto) 3.0 1.0-4.8 K/uL Monocytes # (Auto) 1.3 H 0.1-1.0 K/uL Eosinophils # (Auto) 0.02 0.00-0.70 K/uL Basophils # (Auto) 0.06 0.00-0.20 K/uL Absolute Immature Granulocyte (auto 0.65 0-1 K/uL Nucleated Red Blood Cells 0.1 0.0-0.19 % Sodium Level 144 136-145 mmol/L Potassium Level 3.5 3.5-5.1 mmol/L Chloride Level 109 101-111 mmol/L Carbon Dioxide Level 27 21-32 mmol/L Blood Urea Nitrogen 25 H 7-18 mg/dL Creatinine 1.1 0.5-1.3 mg/dL Glomerular Filtration Rate Calc 97 >90 mL/min Random Glucose 113 H 70-105 mg/dL Total Calcium 8.5 8.5-10.1 mg/dL Magnesium Level 2.30 1.80-2.40 mg/dL Total Bilirubin 0.3 0.2-1.0 mg/dL Aspartate Amino Transf (AST/SGOT) 19 10-37 U/L Alanine Aminotransferase (ALT/SGPT) 36 12-78 U/L Alkaline Phosphatase 63 50-136 U/L Total Protein 6.3 6.0-8.3 g/dL Albumin 2.7 L 3.5-5.0 g/dL Procalcitonin < 0.05 L 0.05-0.5 ng/mL Lactic Acid Level 2.2 0.8-2.5 mmol/L C. difficile Antigen and Toxins A,B See comments NEG HIV (1&2) Antibody Non-Reactive Negative HIV P24 Antigen, Qualitative Non-Reactive Negative Current Medications Medications (Trade) Dose Ordered Sig/Carol Route PRN Reason Start Time Stop Time Status Last Admin Dose Admin Acetaminophen (TYLenol 325MG TAB) 650 mg Q4H PRN PO TEMPERATURE GREATER THAN 101.5 07/20/24 17:30 08/19/24 17:29 07/20/24 21:50 650 MG Acetaminophen (TYLenol 325MG TAB) 650 mg Q6H PRN PO MILD PAIN (1-3) 07/20/24 17:30 08/19/24 17:29 Acetylcysteine (MUComyst 20% 4ML) 400mg = 2ml [id number] IH 07/21/24 12:00 08/20/24 11:59 07/23/24 06:00 4 MG Albuterol (DUOneb) 1 UDVIAL [id number] IH 07/21/24 00:00 07/20/24 23:48 DC Albuterol (DUOneb) 1 UDVIAL [id number] IH 07/21/24 02:00 08/20/24 01:59 07/23/24 08:11 1 UDVIAL Albuterol (DUOneb) 1 UDVIAL [id number] IH 07/20/24 18:00 07/20/24 22:23 DC 07/20/24 20:14 1 UDVIAL Ceftriaxone Sodium (ROCEphine 1G INJ) 1 gm Q24H IVPB 07/20/24 17:30 07/21/24 08:10 DC Ceftriaxone Sodium (Rocephin 2gm Inj) 2 gm Q24H IVPB 07/21/24 17:30 07/21/24 20:36 DC 07/21/24 16:26 2 GM Doxycycline Hyclate 250 ml @ 125 mls/hr Q12H IV 07/20/24 22:30 07/30/24 22:29 07/22/24 19:47 125 MLS/HR Enoxaparin Sodium (Lovenox) 30 mg DAILY SQ 07/22/24 09:00 08/21/24 08:59 07/22/24 09:28 30 MG Famotidine (Pepcid 20mg Vial) 20 mg BID IV 07/21/24 21:00 08/20/24 20:59 07/23/24 08:18 20 MG Furosemide (LASix 20MG VIAL) 20 mg Q12H IV 07/20/24 17:30 07/20/24 22:18 DC 07/20/24 18:10 20 MG Loperamide HCl (Imodium) 2 mg AD PRN PO AFTER EACH LOOSE STOOL 07/22/24 05:00 08/21/24 04:59 07/23/24 02:42 2 MG Magnesium Sulfate 50 ml @ 0 mls/hr PROTOCOL PRN IV Hypomagnesemia 07/21/24 21:00 08/20/24 20:59 Methylprednisolone Sodium Succinate (Solu-medROL 125MG) 40 mg Q6H IVP 07/21/24 22:00 07/22/24 15:36 DC 07/22/24 09:27 40 MG Methylprednisolone Sodium Succinate (Solu-medROL 125MG) 60 mg Q6H IVP 07/21/24 04:00 07/21/24 20:49 DC 07/21/24 16:26 60 MG Ondansetron HCl (zoFRAN 4MG INJ) 4 mg Q6H PRN IVP NAUSEA/VOMITING 07/20/24 17:30 08/19/24 17:29 Piperacillin Sod/ Tazobactam Sod (Zosyn 3.375gm+NS 50ml) 3.375 gm Q8H IV 07/21/24 21:00 07/21/24 23:01 DC Piperacillin Sod/ Tazobactam Sod (Zosyn 3.375gm+NS 50ml) 3.375 gm Q8H IV 07/22/24 01:00 08/01/24 00:59 07/23/24 08:18 3.375 GM Prednisone (deltaSONE/ oraSONE 20MG TAB) 40 mg DAILY PO 07/23/24 09:00 08/22/24 08:59 Sodium Chloride 1,000 ml @ 75 mls/hr [id number] IV 07/20/24 17:30 08/19/24 17:29 07/22/24 09:28 75 MLS/HR DIAGNOSTICS / RADIOLOGY: PATIENT: YESSI MADDEN MR#: [id number] : 2000 SEX: M AGE: 23 LOCATION: [facility] ORDER 1307 STATUS: ADM IN REPORT#: [id number] SERVICE 1306 REASON: SOB ORDERING PHYSICIAN: ED GUEVARA MD PROCEDURE: CXR2VW - CHEST 2VWS CHEST 2VWS REASON: SOB COMPARISON: 07/20/2024 FINDINGS: Two views of the chest were obtained. There is patchy infiltrate in the left lung base, unchanged. Lungs are otherwise clear. Heart, mediastinum and bony thorax appear unremarkable. There is no pulmonary vascular congestion or pleural effusion. IMPRESSION: 1. Left lower lobe infiltrate consistent with pneumonia. DICTATED BY: JUAN CARLOS GANNON MD DATE: 07/22/24 1538 ELECTRONICALLY SIGNED BY: JUAN CARLOS GANNON MD DATE: 07/22/24 1541 ASSESSMENT: Sepsis, POA Left lung pneumonia, POA B/L lung infiltrate, POA Acute hypoxic respiratory failure, POA Acute mild rhabdomyolysis, POA PLAN: Patient to be admitted to ICU We will consult critical Care team Patient will continue with oxygen supplementation to keep O2 sat greater than 92% Continue with nebulizer treatment with ipratropium/albuterol every 6 hours scheduled Continue with normal saline at 75 mL/hour for rhabdomyolysis Continue with GI and DVT prophylaxis We will repeat labs tomorrow Follow on respiratory cultures and stool culture Patient is a full code ATTESTATION BY PHYSICIAN I have seen and examined the patient. I reviewed the documentation, medical decision making, and treatment plan as noted by the mid-level provider above. I agree with the findings and plan of care. Hemant Ferreira MD, KEERTI K MD Jul 23, 2024 09:02
[2024-07-23] MEDS: predniSONE 20 MG TABLET PO SCH (09:05)
[2024-07-23] MEDS: guaiFENesin-DM 200/20MG 10ML PO PRN (11:12)
--- NOTE | 2024-07-23 15:15 | HMCIMG ---
CHEST 2VWS REASON: Pneumonia resolution COMPARISON: 07/22/2024 FINDINGS: Two views of the chest were obtained. There is confluent left lower lobe infiltrate consistent with pneumonia. Lungs are otherwise clear. Heart size is normal. Mediastinum and bony thorax appear unremarkable. IMPRESSION: 1. Left lower lobe infiltrate consistent with pneumonia, unchanged.
--- NOTE | 2024-07-23 19:26 | PN ---
[facility] PROGRESS NOTE Date Patient Seen: Jul 23, 2024 Time of Visit: 1322 Supervising Physician: Dr. Garvin Primary Care Physician: Lisbet Matthews MD Outpatient Specialists: Attending Physician: Ilia Rosado MD Inpatient Consults: BIS PROBLEM LIST: Acute hypoxemic respiratory failure, POA on 4 L via NC Sepsis, POA w/ Organ dysfunction (respiratory) Gram Negative Bilateral lung pneumonia with L> R left side pleural effusion ruled out per CT chest Dehydration POA mild rhabdomyolysis Mild hypoalbuminemia Elevated D-Dimer POA Obesity BMI 30.6 INTERVAL HISTORY: 07/22 patient was seen and examined at bedside with family present. At time of visit patient has been weaned off oxygen and is on room air. Patient states shortness of breadth has improved significantly. Patient denies any chest pain at time of visit. Patient denies any nausea vomiting or abdominal pain. He is tolerating p.o. diet. He is having bowel movements. At this time we will discontinue patient's Solu-Medrol, and transition patient to prednisone 40 mg daily to complete a total of five days. Patient to continue on IV antibiotics. We will continue to monitor patient closely 07/23 patient was seen and examined by bedside no family present. Patient has been weaned off oxygen is currently on room air appears to be tolerating well. Patient denies any chest pain or shortness of breadth. Denies any nausea vomiting or abdominal pain. He is tolerating p.o. diet. No temperatures have been reported. Has remained hemodynamically stable. WBCs trending down today 21.4. We will continue to monitor patient closely. Patient to continue on oral prednisone. And continue with IV antibiotics. REVIEW OF SYSTEMS: 12 Point review of system reviewed with patient all permanent positives mentioned above otherwise negative PHYSICAL EXAM: GENERAL: alert, weak, awake oriented x 3 HEENT: EOMI, Sclera non icteric, moist mucosa NECK: Supple, no JVD, trachea midline LUNGS: Rhonchi breath sounds bilaterally. No wheezes HEART: Regular rate and rhythm. Normal S1 and S2, without murmurs ABD: Abdomen soft, nontender. Bowel sounds present EXT: No clubbing cyanosis or edema NEURO: Alert and oriented to person, follows commands Vital Signs (last 8hr) Date Time Temp Pulse Resp B/P (MAP) Pulse Ox O2 Delivery O2 Flow Rate FiO2 07/23/24 19:16 80 20 07/23/24 19:15 80 18 N/A Room Air 07/23/24 16:55 98.2 56 18 125/57 96 Room Air LABS: Hematology Labs: Test 07/23/24 05:45 Range/Units White Blood Count 21.4 H 4.8-10.8 K/uL Red Blood Count 4.12 L 4.50-6.20 MIL/uL Hemoglobin 12.2 L 14.0-18.0 g/dL Hematocrit 37.0 L 42-54 % Mean Corpuscular Volume 89.8 79-99 fL Mean Corpuscular Hemoglobin 29.6 27.0-33.0 pg Mean Corpuscular Hemoglobin Concent 33.0 32.0-36.0 g/dL Red Cell Distribution Width 13.2 11.0-15.5 % Platelet Count 380 130-400 K/uL Mean Platelet Volume 10.0 7.5-10.5 fL Immature Granulocyte % (Auto) 3.0 H 0-1 % Neutrophils (%) (Auto) 76.9 40.0-77.0 % Lymphocytes (%) (Auto) 13.9 L 21.0-51.0 % Monocytes (%) (Auto) 5.8 3.0-13.0 % Eosinophils (%) (Auto) 0.1 0.0-8.0 % Basophils (%) (Auto) 0.3 0.0-5.0 % Neutrophils # (Auto) 16.4 H 1.8-7.7 K/uL Lymphocytes # (Auto) 3.0 1.0-4.8 K/uL Monocytes # (Auto) 1.3 H 0.1-1.0 K/uL Eosinophils # (Auto) 0.02 0.00-0.70 K/uL Basophils # (Auto) 0.06 0.00-0.20 K/uL Absolute Immature Granulocyte (auto 0.65 0-1 K/uL Nucleated Red Blood Cells 0.1 0.0-0.19 % Chemistry Labs: Test 07/23/24 05:45 07/22/24 10:08 Range/Units Sodium Level 144 136-145 mmol/L Potassium Level 3.5 3.5-5.1 mmol/L Chloride Level 109 101-111 mmol/L Carbon Dioxide Level 27 21-32 mmol/L Blood Urea Nitrogen 25 H 7-18 mg/dL Creatinine 1.1 0.5-1.3 mg/dL Glomerular Filtration Rate Calc 97 >90 mL/min Random Glucose 113 H 70-105 mg/dL Total Calcium 8.5 8.5-10.1 mg/dL Magnesium Level 2.30 1.80-2.40 mg/dL Total Bilirubin 0.3 0.2-1.0 mg/dL Aspartate Amino Transf (AST/SGOT) 19 10-37 U/L Alanine Aminotransferase (ALT/SGPT) 36 12-78 U/L Alkaline Phosphatase 63 50-136 U/L Total Protein 6.3 6.0-8.3 g/dL Albumin 2.7 L 3.5-5.0 g/dL Procalcitonin < 0.05 L 0.05-0.5 ng/mL Lactic Acid Level 2.2 0.8-2.5 mmol/L DIAGNOSTICS / RADIOLOGY RESULTS: na PLAN NEURO: Minimize central acting medications as possible. Maintain fall precautions, adequate lighting during the day PULMONARY: Supplemental 02 as needed. Maintain aspiration precautions at all times CARDIOVASCULAR: Follow hemodynamics. Vital signs per facility protocol GI & NUTRITION: Continue with nutritional support. Continue stool softeners and laxatives as needed. KIDNEYS & ELECTROLYTES: Strict monitoring of intake, output and overall fluid balance. Avoid nephrotoxic medications to the extent possible. Medications to be dosed according to renal function. Monitor electrolytes and replace as needed ENDOCRINE: Maintain blood glucose between 100-180 at all times. Hypoglycemia protocol in place INFECTIOUS DISEASE: Trend temperature, WBC and procalcitonin level Follow cultures, deescalate antibiotics as soon as possible. Panculture if new onset fever ONCOLOGY/HEMATOLOGY/COAGULATION: Monitor for s/s of bleeding Monitor hemoglobin, coagulation studies as needed SKIN: Pressure ulcer prevention per facility protocol Specialty mattress ORTHO/REHAB: Continue PT/OT Prophylaxis: Continue GI and DVT prophylaxis Code Status: Full Resuscitation Disposition: TBD Other: Case discussed with supervising physician plan of care agreed upon Total time spent caring for patient 35 minutes RADHA CLIFTON Jul 23, 2024 19:26
[2024-07-24] VITALS (9 sets, daily range): BP systolic 123–145; BP diastolic 68–82; PULSE 52–75; RESP 18–20; TEMP 97.6–98; O2SAT 95–96
[2024-07-24 05:56] LABS: BASOPHILS # (AUTO) 0.06 K/uL (0.00-0.20); BASOPHILS % (AUTO) 0.4 % (0.0-5.0); EOSINOPHILS # (AUTO) 0.08 K/uL (0.00-0.70); EOSINOPHILS % (AUTO) 0.6 % (0.0-8.0); HEMATOCRIT 37.4 % (42-54); IMMATURE GRANULOCYTE ABSOLUTE 0.64 K/uL (0-1); LYMPHOCYTES # (AUTO) 3.7 K/uL (1.0-4.8); LYMPHOCYTES % (AUTO) 26.1 % (21.0-51.0); MEAN CORPUSCULAR HEMOGLOBIN 30.1 pg (27.0-33.0); MEAN CORPUSCULAR HGB CONC 33.2 g/dL (32.0-36.0); MEAN CORPUSCULAR VOLUME 90.8 fL (79-99); MONOCYTES # (AUTO) 1.1 K/uL (0.1-1.0); MONOCYTES % (AUTO) 7.5 % (3.0-13.0); NEUTROPHILS # (AUTO) 8.6 K/uL (1.8-7.7); NEUTROPHILS % (AUTO) 60.8 % (40.0-77.0); NUCLEATED RED BLOOD CELLS 0.2 % (0.0-0.19); PLATELET COUNT (AUTO) 388 K/uL (130-400); RED BLOOD CELL COUNT(AUTO) 4.12 MIL/uL (4.50-6.20); RED CELL DISTRIBUTION WIDTH 13.1 % (11.0-15.5)
[2024-07-24 06:12] LABS: ALBUMIN 2.6 g/dL (3.5-5.0); BILIRUBIN,TOTAL 0.4 mg/dL (0.2-1.0); MAGNESIUM 2.3 mg/dL (1.80-2.40); POTASSIUM 3.2 mmol/L (3.5-5.1); TOTAL PROTEIN, SERUM 6.3 g/dL (6.0-8.3)
[2024-07-24] MEDS: IpraTROPium/alBUTERol SULFATE 3 ML SOLUTION IH SCH (12:37)
--- NOTE | 2024-07-24 14:47 | PN ---
[facility] PROGRESS NOTE Date Patient Seen: Jul 24, 2024 Time of Visit: 1149 Supervising Physician: Dr. Garvin Primary Care Physician: Lisbet Matthews MD Outpatient Specialists: Attending Physician: Ilia Rosado MD Inpatient Consults: BIS PROBLEM LIST: Acute hypoxemic respiratory failure, POA on 4 L via NC Sepsis, POA w/ Organ dysfunction (respiratory) Gram Negative Bilateral lung pneumonia with L> R left side pleural effusion ruled out per CT chest Dehydration POA mild rhabdomyolysis Mild hypoalbuminemia Elevated D-Dimer POA Obesity BMI 30.6 INTERVAL HISTORY: 07/22 patient was seen and examined at bedside with family present. At time of visit patient has been weaned off oxygen and is on room air. Patient states shortness of breadth has improved significantly. Patient denies any chest pain at time of visit. Patient denies any nausea vomiting or abdominal pain. He is tolerating p.o. diet. He is having bowel movements. At this time we will discontinue patient's Solu-Medrol, and transition patient to prednisone 40 mg daily to complete a total of five days. Patient to continue on IV antibiotics. We will continue to monitor patient closely 07/23 patient was seen and examined by bedside no family present. Patient has been weaned off oxygen is currently on room air appears to be tolerating well. Patient denies any chest pain or shortness of breadth. Denies any nausea vomiting or abdominal pain. He is tolerating p.o. diet. No temperatures have been reported. Has remained hemodynamically stable. WBCs trending down today 21.4. We will continue to monitor patient closely. Patient to continue on oral prednisone. And continue with IV antibiotics. 07/24 patient was seen and examined by bedside with mother present. Patient is awake alert able to answer simple questions appropriately. Patient remains on room air is tolerating well. Patient's WBCs continue to trend down today 14.0 yesterday 21.4. At time of visit patient denies any chest pain or shortness of breadth. Patient states is ambulating with no symptoms of shortness of breadth. Tolerating p.o. diet. Remains hemodynamically stable. No temperatures have been reported. From a pulmonary standpoint patient has remained stable, we will continue to monitor closely. Patient to continue on IV antibiotics REVIEW OF SYSTEMS: 12 Point review of system reviewed with patient all permanent positives mentioned above otherwise negative PHYSICAL EXAM: GENERAL: alert, weak, awake oriented x 3 HEENT: EOMI, Sclera non icteric, moist mucosa NECK: Supple, no JVD, trachea midline LUNGS: Rhonchi breath sounds bilaterally. No wheezes HEART: Regular rate and rhythm. Normal S1 and S2, without murmurs ABD: Abdomen soft, nontender. Bowel sounds present EXT: No clubbing cyanosis or edema NEURO: Alert and oriented to person, follows commands Vital Signs (last 8hr) Date Time Temp Pulse Resp B/P (MAP) Pulse Ox O2 Delivery O2 Flow Rate FiO2 07/24/24 12:41 72 18 N/A Room Air 07/24/24 12:38 72 18 07/24/24 12:00 97.5 64 19 140/73 97 Room Air 07/24/24 08:00 98.1 52 19 138/73 97 Room Air 07/24/24 07:36 68 20 LABS: Hematology Labs: Test 07/24/24 05:27 Range/Units White Blood Count 14.0 #H 4.8-10.8 K/uL Red Blood Count 4.12 L 4.50-6.20 MIL/uL Hemoglobin 12.4 L 14.0-18.0 g/dL Hematocrit 37.4 L 42-54 % Mean Corpuscular Volume 90.8 79-99 fL Mean Corpuscular Hemoglobin 30.1 27.0-33.0 pg Mean Corpuscular Hemoglobin Concent 33.2 32.0-36.0 g/dL Red Cell Distribution Width 13.1 11.0-15.5 % Platelet Count 388 130-400 K/uL Mean Platelet Volume 9.7 7.5-10.5 fL Immature Granulocyte % (Auto) 4.6 H 0-1 % Neutrophils (%) (Auto) 60.8 40.0-77.0 % Lymphocytes (%) (Auto) 26.1 21.0-51.0 % Monocytes (%) (Auto) 7.5 3.0-13.0 % Eosinophils (%) (Auto) 0.6 0.0-8.0 % Basophils (%) (Auto) 0.4 0.0-5.0 % Neutrophils # (Auto) 8.6 H 1.8-7.7 K/uL Lymphocytes # (Auto) 3.7 1.0-4.8 K/uL Monocytes # (Auto) 1.1 H 0.1-1.0 K/uL Eosinophils # (Auto) 0.08 0.00-0.70 K/uL Basophils # (Auto) 0.06 0.00-0.20 K/uL Absolute Immature Granulocyte (auto 0.64 0-1 K/uL Nucleated Red Blood Cells 0.2 H 0.0-0.19 % Chemistry Labs: Test 07/24/24 05:27 07/23/24 05:45 Range/Units Sodium Level 141 136-145 mmol/L Potassium Level 3.2 L 3.5-5.1 mmol/L Chloride Level 106 101-111 mmol/L Carbon Dioxide Level 29 21-32 mmol/L Blood Urea Nitrogen 15 7-18 mg/dL Creatinine 1.0 0.5-1.3 mg/dL Glomerular Filtration Rate Calc 109 >90 mL/min Random Glucose 93 70-105 mg/dL Total Calcium 8.5 8.5-10.1 mg/dL Magnesium Level 2.30 1.80-2.40 mg/dL Total Bilirubin 0.4 # 0.2-1.0 mg/dL Aspartate Amino Transf (AST/SGOT) 21 10-37 U/L Alanine Aminotransferase (ALT/SGPT) 47 # 12-78 U/L Alkaline Phosphatase 55 50-136 U/L Total Protein 6.3 6.0-8.3 g/dL Albumin 2.6 L 3.5-5.0 g/dL Procalcitonin < 0.05 L 0.05-0.5 ng/mL DIAGNOSTICS / RADIOLOGY RESULTS: na PLAN NEURO: Minimize central acting medications as possible. Maintain fall precautions, adequate lighting during the day PULMONARY: Supplemental 02 as needed. Maintain aspiration precautions at all times CARDIOVASCULAR: Follow hemodynamics. Vital signs per facility protocol GI & NUTRITION: Continue with nutritional support. Continue stool softeners and laxatives as needed. KIDNEYS & ELECTROLYTES: Strict monitoring of intake, output and overall fluid balance. Avoid nephrotoxic medications to the extent possible. Medications to be dosed according to renal function. Monitor electrolytes and replace as needed ENDOCRINE: Maintain blood glucose between 100-180 at all times. Hypoglycemia protocol in place INFECTIOUS DISEASE: Trend temperature, WBC and procalcitonin level Follow cultures, deescalate antibiotics as soon as possible. Panculture if new onset fever ONCOLOGY/HEMATOLOGY/COAGULATION: Monitor for s/s of bleeding Monitor hemoglobin, coagulation studies as needed SKIN: Pressure ulcer prevention per facility protocol Specialty mattress ORTHO/REHAB: Continue PT/OT Prophylaxis: Continue GI and DVT prophylaxis Code Status: Full Resuscitation Disposition: TBD Other: Case discussed with supervising physician plan of care agreed upon RADHA CLIFTON Jul 24, 2024 14:47
--- NOTE | 2024-07-24 15:19 | DS ---
Discharge Summary Hospital Course Summary: 23-year-old with denies any pertinent medical history presented to the emergency department with shortness of breaths for three days now. Patient reported cough and nasal congestion. He denies any fever chills body aches. Apparently patient was sent by Estela Proctor for low oxygen saturation and was diagnosed with pneumonia. In the ED, his initial vital signs showed temperature of 102.2 F, pulse 114, respiratory rate 24, BP 154/79, O2 sat 90% on room air. Laboratory data reviewed, WBC 11.2, left shift noted, chloride 96, random glucose 146, total creatinine kinase 254, albumin 3.4. Chest x-ray showed infiltrate in the left lung base. Critical care was consulted on the patient, he was started on ceftriaxone and doxycycline and methylprednisone , patient started improving clinically but the diarrhea persisted , imodium was added eventually . patient was able to breath at room air eventually on day 2 of admission , but the patient had elevation in WBC to 24.7 . patient was started on Zosyn and continued on remaining regimen. patient's stool culture , respiratory culture , blood culture all came out negative . WBC eventually got down to 14, patient is completely asymptomatic and also started having formed stools. 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 There is confluent left lower lobe infiltrate consistent with pneumonia. Lungs are otherwise clear. Heart size is normal. Mediastinum and bony thorax appear unremarkable. IMPRESSION: 1. Left lower lobe infiltrate consistent with pneumonia, unchanged. DICTATED BY: JUAN CARLOS GANNON MD DATE: 07/23/241511 ELECTRONICALLY SIGNED BY: JUAN CARLOS GANNON MD DATE: 07/23/241514 PATIENT: YESSI MADDEN MR#: [id number] : 2000 SEX: M AGE: 23 LOCATION: [facility] ORDER 1307 STATUS: ADM IN REPORT#: [id number] SERVICE 1306 REASON: SOB ORDERING PHYSICIAN: ED GUEVARA MD PROCEDURE: CXR2VW - CHEST 2VWS CHEST 2VWS REASON: SOB COMPARISON: 07/20/2024 FINDINGS: Two views of the chest were obtained. There is patchy infiltrate in the left lung base, unchanged. Lungs are otherwise clear. Heart, mediastinum and bony thorax appear unremarkable. There is no pulmonary vascular congestion or pleural effusion. IMPRESSION: 1. Left lower lobe infiltrate consistent with pneumonia. DICTATED BY: JUAN CARLOS GANNON MD DATE: 07/22/24 1538 ELECTRONICALLY SIGNED BY: JUAN CARLOS GANNON MD DATE: 07/22/24 1541 PATIENT: YESSI MADDEN MR#: [id number] : 2000 SEX: M AGE: 23 LOCATION: [facility] ORDER 43 STATUS: ADM IN REPORT#: [id number] SERVICE 34 REASON: rule out DVT ORDERING PHYSICIAN: JAIRO PUENTE PROCEDURE: VENOUS GI - US VENOUS DOPPLER BILATERAL US VENOUS DOPPLER BILATERAL REASON: rule out DVT COMPARISON: None Technique: Bilateral venous doppler ultrasound was performed with spectral analysis and color flow imaging technique. FINDINGS: There is a normal appearance of the common femoral, deep femoral, the profunda femoris and popliteal veins. Proximal calf veins appear normal as well. There is normal response to compression and augmentation. There is no evidence of deep venous thrombosis. IMPRESSION: Normal bilateral lower extremity venous Doppler ultrasound. DICTATED BY: JUAN CARLOS GANNON MD DATE: 07/22/24 0934 ELECTRONICALLY SIGNED BY: JUAN CARLOS GANNON MD DATE: 07/22/24 0938 PATIENT: YESSI MADDEN MR#: [id number] : 2000 SEX: M AGE: 23 LOCATION: [facility] ORDER 1514 STATUS: REG ER REPORT#: [id number] SERVICE 1512 REASON: sob ORDERING PHYSICIAN: DEMARIO ZAMUDIO MD PROCEDURE: CXR1VW - CHEST 1VW CHEST 1VW REASON: sob COMPARISON: None. FINDINGS: There is haziness in the left lung base, probably from a left pleural effusion. The left basilar infiltrate consistent appearance. Lungs are otherwise clear. Cardiomediastinal and bony thorax appear unremarkable. IMPRESSION: 1. Infiltrate or effusion in the left lung base. DICTATED BY: JUAN CARLOS GANNON MD DATE: 07/20/24 1538 PATIENT: YESSI MADDEN MR#: [id number] : 2000 SEX: M AGE: 23 [facility] STATUS: ADM IN REPORT#: [id number] SERVICE 1725 REASON: pleural effusion ORDERING PHYSICIAN: TANIA DEAN PROCEDURE: CHEST W - CT CHEST W/CONTRAST CT CHEST WITH CONTRAST INDICATION: Pleural effusion evaluation TECHNIQUE: Routine axial images using 5 mm slice thickness were acquired from the lung apices to the bases after the administration of 100 mL of Isovue 370 IV contrast.Coronal and sagittal reformatted images acquired for interpretation. CT was performed with one or more of the following dose reduction techniques: Automated exposure control, adjustment of the mA and/or kV according to patient size, or use of iterative reconstruction technique. COMPARISON: None FINDINGS: The heart size is normal. No pericardial effusion noted. The visualized great vessels and thoracic aorta are within normal limits. The trachea and airways are patent. Large left lower lobe consolidation. Scattered inferior right upper lobe opacities and scattered right lower lobe opacities. Minimal posterior left upper lobe opacities. Small lingular consolidation. No axillary, hilar, or mediastinal lymphadenopathy. No pleural effusion or pneumothorax identified. Limited views of the upper abdomen appear normal. Visible osseous structures are intact. IMPRESSION: Extensive left greater than right lung pneumonia, without pleural effusion. DICTATED BY: PEÑA CHRISTIAN MD DATE: 07/20/24 182 ELECTRONICALLY SIGNED BY: PEÑA CHRISTIAN MD DATE: 07/20/24 183 ELECTRONICALLY SIGNED BY: JUAN CARLOS GANNON MD DATE: 07/20/24 1541 Assessment/Plan: ASSESSMENT: Sepsis, POA Left lung pneumonia, POA B/L lung infiltrate, POA Acute hypoxic respiratory failure, POA Acute mild rhabdomyolysis, POA Discharge Instructions: take medication as prescribed . do not skip the medication even if you feel fine. drink more fluids. use the inhaler as needed . come back to the hospital if you have any acute or emergency symptoms. Take tylenol over the counter as needed if you develop any fevers New Medications: Amoxicillin/Potassium Clav (Augmentin Xr 1,000-62.5 Tab) 1,000 Mg-62.5 Mg Tab.er.12h 1 TAB PO DAILY for 3 Days, #3 TAB 0 Refills with food Azithromycin (Azithromycin) 500 Mg Tablet 1 TAB PO DAILY for 3 Days, #3 TAB 0 Refills Ipratropium/Albuterol Sulfate (Iprat-Albut 0.5-3(2.5) mg/3 ml) 0.5 Mg-3 Mg (2.5 Mg Base)/3 Ml Ampul.neb 1 UDVIAL IH [id number], #1 Time spent arranging discharge: 1-30 minutes ATTESTATION BY PHYSICIAN I have seen and examined the patient. I reviewed the documentation, medical decision making, and treatment plan as noted by the mid-level provider above. I agree with the findings and plan of care. Ronnie Clancy IV, MD, KEERTI K MD Jul 24, 2024 15:19
[2024-07-24] MEDS ORDERED: AMOX-427 PO (15:24)
[2024-07-24] MEDS ORDERED: IPRA3AMP24 IH (15:24)
[2024-07-24] MEDS ORDERED: AZIT500T4 PO (15:24)
[2024-07-24] MEDS ORDERED: LEVO750T68 PO (16:53)
[2024-07-24] MEDS ORDERED: PRED20TA3 PO (16:53)
--- NOTE | 2024-07-24 17:29 | NUR ---
PATIENT AND MOTHER GIVEN DISCHARGE INSTRUCTIONS, MADE AWARE OF F/U APPOINTMENT WITH DR. MORRIS 07/29 AT 6:50PM FOR REPEAT CHEST X-RAY, ADDRESS AND PHONE NUMBER TO OFFICE PROVIDED. INSTRUCTED PATIENT TO SCHEDULE F/U APPOINTMENT WITH PCP RECOMMENDED AND TO TAKE ALL MEDICATIONS ORDERED, VERBALIZED UNDERSTANDING.
== END 2024-07-24 16:50 | disposition home or self-care (01) | DRG 871 ==
LOC: EDH 14:35 → EDHIP 17:25 → 3DH 07-21 21:13
PROVIDERS: ADMIT Internal Medicine; ATTEND Internal Medicine
DX: A41.9 Sepsis, unspecified organism (principal); J10.08 Influenza due to other identified influenza virus with other specified pneumonia; J15.69 Pneumonia due to other Gram-negative bacteria; J96.01 Acute respiratory failure with hypoxia; M62.82 Rhabdomyolysis; E87.20 Acidosis, unspecified; Z20.822 Contact with and (suspected) exposure to COVID-19; E86.0 Dehydration; R65.20 Severe sepsis without septic shock; E66.9 Obesity, unspecified; E88.09 Other disorders of plasma-protein metabolism, not elsewhere classified; Z68.30 Body mass index [BMI] 30.0-30.9, adult; Z79.899 Other long term (current) drug therapy
CPT/HCPCS: 36415; 36600; 71045; 71046; 71260; 80048; 80053; 80076; 81003; 82550; 82803; 83605; 83735; 83880; 84145; 84484; 85025; 85027; 85378; 86701; 87040; 87046; 87071; 87205; 87324; 87390; 87426; 87449; 87804; 87880; 93970; 94640; 94664; 94667; 94668; G0378; J0696; J1650; J1940; J2543; J2919; J3490; J7030; Q9967